=== PATIENT | female | born 1965 | race Caucasian/White ===

== ENCOUNTER 2017-11-17 07:30 | Outpatient (RCR) | payer OTHER, SELFPAY ==
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
--- NOTE | 2017-12-15 10:39 | HP.PT.NRP ---
HP - Discharge Summary (1) - Patient Information ARACELY MARIE was seen in my office for initial evaluation on 11/11/17. The following Plan of Care was established for this patient: Initial Frequency: 2x /Week Initial Duration: 3 Weeks - Anticipated Interventions Patient/Client Instruction: Educate patient on: Benefits of Fitness Program For the Purpose of:: To improve ability to perform ADL's Therapeutic Exercise to Include: Strength training, Endurance training, Coordination, Body mechanics, Postural training, Flexibilty training, Passive ROM, Active ROM, Scapular Strength/Stabilization For the Purpose of:: To improve muscle performance and motor function Manual Therapy Techniques to Include: Mobilization, Functional dry needling, Soft tissue mobilization For the Purpose of:: To improve nutrient delivery to tissue, To increase oxygenation perfusion This patient was last seen in our office . Pertinent comments regarding their Physical therapy will appear below: Patient has not attended therapy in 4 weeks and is appropriate for d/c at this time. At this point I will be discontinuing this patient from physical therapy. I would be happy to see this patient again in the future if found appropriate by the physician. Thank you! Gi Fuchs
== END 2017-11-17 19:00 | disposition home or self-care (01) ==
LOC: PT 07:30
PROVIDERS: Family Provider Internal Medicine Infectious Disease; PCP Internal Medicine Infectious Disease; Visit Provider Internal Medicine Infectious Disease
DX: M54.2 Cervicalgia (principal)
CPT/HCPCS: 97110; 97140; 97162

== ENCOUNTER → 2018-05-25 07:26 | Outpatient (CLI) | payer OTHER, SELFPAY ==
[2018-05-28 11:02] LABS: Thyroid Stim Hormone (TSH) 1.41 uIU/mL (0.358-3.74)
== END ==
PROVIDERS: Family Provider Internal Medicine Infectious Disease; PCP Internal Medicine Infectious Disease; Visit Provider Internal Medicine Infectious Disease
DX: Z00.00 Encounter for general adult medical examination without abnormal findings (principal); E78.1 Pure hyperglyceridemia; E78.00 Pure hypercholesterolemia, unspecified; Z68.26 Body mass index [BMI] 26.0-26.9, adult
CPT/HCPCS: 84443

== ENCOUNTER 2018-07-17 06:51 | Day surgery (SDC) | payer OTHER, SELFPAY ==
[2018-07-17] VITALS (9 sets, daily range): BP systolic 95–137; BP diastolic 62–88; PULSE 78–87; RESP 12–18; TEMP 36.8–37.2; O2SAT 95–100; BMI 26.4
--- NOTE | 2018-07-17 08:00 | COLBX_PTH ---
PATIENT: ARACELY MARIE LOC: EN U#:[id number] AGE/SX: 52/F ROOM: RE07/17/[address]: Dr. Mati Newman MD : 1965 BED: DIS: 07/17/2018 SPEC #: [id number] RECD: 07/17/18 10:08 STATUS: DIANA PILO #: [id number] SLADE: 07/17/18 08:[address]: Mati Newman DEPT: SURGICAL PATHOLOGY RECD BY: Graeme Clancy ENTERED: 07/17/18 11:36 SP TYPE: COLON BX OTHR DR: Dr. Chase Gamlbe MD Tissues: COLON BIOPSY Procedures: Surgery Specimen Level IV HEADER OPERATION: Colonoscopy (MOD) PRE-OP DIAGNOSIS: Screening TISSUE SUBMITTED: Random colon biopsies MICROSCOPIC DIAGNOSIS Colon, random biopsy: Fragments of colonic mucosa, no pathologic diagnosis. See comment. SJ:elroy 07/20/18 COMMENT Trichrome stain with matched control is used in the evaluation of the specimen and does not show any significant thickening of subepithelial collagen band. Correlation with clinical, endoscopy findings and appropriate followup are necessary. Case has been reviewed in consultation with Dr. Elam who concurs with the above diagnosis. IDC:AM MICROSCOPIC DESCRIPTION Slides are reviewed. GROSS DESCRIPTION Received is one container labeled with the patient name and designated random colon biopsy. The specimen consists of multiple irregular fragments of light talley soft tissue that in aggregate measure 1 x 0.5 x 0.1 cm. The specimen is totally submitted in one cassette. / SJ:sp 07/17/18 TC: 4 CPT: 95533, 99841
--- NOTE | 2018-07-17 08:19 | PCM.HP.STD ---
Problem List (1) Screening for intestinal cancer Status: Acute History of Present Illness Date of Admission: 07/17/18 The patient is a 52 year old F screening for intestinal cancer. Previous colonoscopy was 10 years ago. No bright red blood per rectum or melena. She does have lifelong chronic constipation alternating with diarrhea. No family history of colon cancer. She otherwise is enjoying stable health. Past Medical History Past Medical History (Chronic Problems): Chronic Problems (Last Reviewed 05/25/18 @ 14:42 by Jami Madden) Autonomic dysfunction (Chronic) Atrophic vaginitis (Chronic) Medical History: Medical History (Last Reviewed 05/25/18 @ 14:42 by Jami Madden) SVT (supraventricular tachycardia) (Acute) I47.1 Autonomic dysfunction (Chronic) G90.9 Endometriosis N80.9 History of hysterectomy Z90.710 Allergies No Known Allergies Allergy (Verified 07/14/18 14:20) Home Medications: Ambulatory Orders Medication Instructions Recorded Fludrocortisone Acetate [Florinef] 0.1 mg PO QHS 08/12/15 Metoprolol(XL)Succ [Toprol Xl 25 mg PO QHS 08/12/15 (Beta Tyler)] multivitamin,kb-wtrw-jsdxhire 1 tab PO QHS 10/14/17 tablet yzbbiez-nkdoablciwmws-tosqvbtp 250 1 tab PO ONCE PRN 05/25/18 mg-250 mg-65 mg tablet sennosides 8.6 mg tablet 8.6 mg PO DAILY PRN PRN 05/25/18 Melatonin 3 mg PO MOWETH 07/14/18 Surgical History: Surgical History (Last Reviewed 05/25/18 @ 14:42 by Jami Madden) History of appendectomy Z98.890, Z90.49 History of cholecystectomy Z90.49 History of tubal ligation Z98.51 Smoking Status: Never smoker Tobacco Use: Non-smoker Review of Systems Constitutional: Reports: - - Mild nausea and headache Eyes: Denies: Blurred vision Cardiovascular: Denies: Chest Pain Respiratory: Denies: Cough Gastrointestinal: Reports: Constipation, Diarrhea. Denies: Abdominal Pain Genitourinary: Denies: Dysuria Psychiatric: Denies: Anxiety Endocrine: Denies: Change in Body Habitus VTE Information - Inpt Only VTE Present on Admission: No Patient Problems: Active and Suspected Problems (Last Reviewed 05/25/18 @ 14:42 by Jami Madden) Screening for intestinal cancer (Acute) - Physical Exam General: Alert, Oriented x3, Cooperative, No apparent distress HEENT: Atraumatic Oral: Moist Mucosa Neck: Supple Lungs: Clear to auscultation Cardiovascular: Regular rate, Regular Rhythm Abdomen: Bowel Sounds Present, Soft Extremities: No clubbing Vital Signs Temp Pulse Resp BP Pulse Ox 99.0 F 87 16 121/88 H 98 07/17/18 07:09 07/17/18 07:09 07/17/18 07:09 07/17/18 07:09 07/17/18 07:09 Oxygen Delivery Method Room Air Weight: 156 lb 11.979 oz Body Mass Index (BMI) 26.4 Assessment/Plan All Active Problems (Last Reviewed 05/25/18 @ 14:42 by Jami Madden) Screening for intestinal cancer (Acute) SVT (supraventricular tachycardia) (Acute) I have recommended the patient a colonoscopy with possible biopsy or polypectomy is indicated. She is aware of the technique, benefits, risks, alternatives. She has had an opportunity to ask and have questions answered. She presents via our open access program. Mati Newman M.D., F.A.C.S.
--- NOTE | 2018-07-17 08:42 | OP.ENDO_ITS ---
Patient Name: Sena Hernandez Procedure Date: 07/17/2018 8:16 AM Date of : 1965 Age: 52 Procedure: Colonoscopy Indications: Screening for colorectal malignant neoplasm Providers: Mati Newman MD Referring MD: Mati Newman MD Medicines: Midazolam 4 mg IV, Meperidine 100 mg IV Patient Profile: Last Colonoscopy: 10 years ago. Complications: No immediate complications. Procedure: Pre-Anesthesia Assessment: - Prior to the procedure, a History and Physical was performed, and patient medications and allergies were reviewed. The patient's tolerance of previous anesthesia was also reviewed. The risks and benefits of the procedure and the sedation options and risks were discussed with the patient. All questions were answered, and informed consent was obtained. Prior Anticoagulants: The patient has taken no previous anticoagulant or antiplatelet agents. ASA Grade Assessment: II - A patient with mild systemic disease. After reviewing the risks and benefits, the patient was deemed in satisfactory condition to undergo the procedure. After I obtained informed consent, the scope was passed under direct vision. Throughout the procedure, the patient's blood pressure, pulse, and oxygen saturations were monitored continuously. The pediatric colonoscope was introduced through the anus and advanced to the cecum, identified by appendiceal orifice and ileocecal valve. The colonoscopy was performed without difficulty. The patient tolerated the procedure well. The quality of the bowel preparation was good. The ileocecal valve was photographed. Moderate Sedation: Moderate (conscious) sedation was personally administered by the endoscopist. The following parameters were monitored: oxygen saturation, heart rate, blood pressure, and response to care. Total physician intraservice time was 15 minutes. Scope In: 8:26:05 AM Scope Withdrawal Time 0 hours 7 minutes 13 seconds Scope Out: 8:37:22 AM Total Procedure Duration Time 0 hours 11 minutes 17 seconds Findings: The perianal and digital rectal examinations were normal. The colon (entire examined portion) appeared normal. Biopsies for histology were taken with a cold forceps from the entire colon for evaluation of microscopic colitis. The exam was otherwise without abnormality. Impression: - The entire examined colon is normal. Biopsied. - The examination was otherwise normal. Recommendation: - Discharge patient to home. - Resume previous diet. - Continue present medications. - Repeat colonoscopy in 10 years for screening purposes. - Telephone my office for pathology results in 1 week. Procedure Code(s): --- Professional --- 28602, Colonoscopy, flexible; with biopsy, single or multiple 21191, 59, Moderate sedation services provided by the same physician or other qualified health human services care specialist performing the diagnostic or therapeutic service that the sedation supports, requiring the presence of an independent trained observer to assist in the monitoring of the patient's level of consciousness and physiological status; initial 15 minutes of intraservice time, patient age 5 years or older Diagnosis Code(s): --- Professional --- Z12.11, Encounter for screening for malignant neoplasm of colon CPT copyright 2017 [employer]. All rights reserved. The codes documented in this report are preliminary and upon airport operations coordinator review may be revised to meet current compliance requirements. Mati Newman MD 07/17/2018 8:42:08 AM This report has been signed electronically. Number of Addenda: 0 Note Initiated On: 07/17/2018 8:16 AM
== END 2018-07-17 10:12 | disposition home or self-care (01) ==
LOC: EN 06:51 → AC 06:53
PROVIDERS: Family Provider Internal Medicine Infectious Disease; PCP Internal Medicine Infectious Disease; Referring Provider Surgery; Visit Provider Surgery
PROC: 0DJD8ZZ Inspection of Lower Intestinal Tract, Via Natural or Artificial Opening Endoscopic (ICD-10-PCS; CPT 45378; principal; 2018-07-17 07:55)
DX: Z12.11 Encounter for screening for malignant neoplasm of colon (principal); K59.00 Constipation, unspecified; N95.2 Postmenopausal atrophic vaginitis; Z90.710 Acquired absence of both cervix and uterus; Z90.49 Acquired absence of other specified parts of digestive tract; Z98.51 Tubal ligation status
CPT/HCPCS: 45380; 88305; 99152; 99153; J7120; J2405

== ENCOUNTER → 2019-01-21 13:31 | Outpatient (CLI) | payer OTHER, SELFPAY ==
[2018-08-01 13:33] VITALS: BMI 28.0
--- NOTE | 2019-01-21 13:34 | BI_ITS ---
MAMMOGRAPHY - BILATERAL SCREENING REASON FOR EXAM: Female, 53 years old. Routine annual screening examination. PERTINENT HISTORY: Aunt with breast cancer. TECHNIQUE: Digital bilateral breast marely (3D mammographic acquisition) in the CC and MLO projections. 2-D mediolateral oblique (MLO) and craniocaudad (CC) views of both breasts were obtained. CAD: Full Field Digital Mammography with Computer Added Detection was performed. COMPARISON: Comparison is made with prior study dated September 30, 2017 and December 14, 2015. FINDINGS: Breast Composition: The breasts are heterogeneously dense, which may obscure small masses. There are no dominant masses or suspicious calcifications. No other significant abnormalities are identified. There has been no significant change since the prior study. BI/SCREENING MAMM (CAD), BILAT IMPRESSION: Stable bilateral screening mammogram. Yearly follow-up mammogram recommended. (A) ASSESSMENT CATEGORY: BIRADS Category 1: Negative. A letter regarding these results will be sent to the patient by the facility within 30 days. Approximately 10% of breast cancers are not detected by mammography. A normal mammogram should not delay biopsy of a clinically suspicious abnormality. [id number] Electronically Signed: Olu Edawrds, at 14:34 EDT , Service support ,
== END ==
PROVIDERS: Family Provider Internal Medicine Infectious Disease; PCP Internal Medicine Infectious Disease; Referring Provider Internal Medicine; Visit Provider Internal Medicine
DX: Z12.31 Encounter for screening mammogram for malignant neoplasm of breast (principal)
CPT/HCPCS: 77063; 77067

== ENCOUNTER → 2019-04-22 06:55 | Outpatient (CLI) | payer OTHER, SELFPAY ==
[2019-01-21 14:15] VITALS: BMI 28.0
[2019-04-22 07:20] LABS: Absolute Lymphocyte Count 2.13 X10^3/uL (0.83-4.51); Absolute Neutrophil Count 3.6 X10^3/uL (2.0-7.7); Basophil# 0.02 X10^3/uL; Basophil% 0.3 % (0-1); Eosinophil# 0.11 X10^3/uL; Eosinophils% 1.7 % (0-5); Hematocrit 40.7 % (37-47); Hemoglobin 13.4 g/dL (12.0-15.0); Lymphocyte # 2.13 X10^3/ul (4.0); Lymphocyte % 32.9 % (19-41); Mean Corp Hgb Conc 32.9 g/dL (32-36); Mean Corpuscular Hgb 30.1 pg (27.0-32.0); Mean Corpuscular Volume 91.5 fL (81-99); Mean Platelet Vol. 9.7 fl (6.2-12.0); Monocyte# 0.62 X10^3/uL; Monocyte% 9.6 % (0-10); NRBC Flagged by Analyzer 0 % (0-5); Neutrophil # 3.57 X10^3/uL (2.7-7.7); Neutrophil % 55.2 % (47-70); Platelet Count 276 K/mm3 (150-450); RBC Distribution Width CV 12.7 % (11.6-14.6); RBC Distribution Width SD 42.4 fl (35.1-43.9); Red Blood Count 4.45 M/mm3 (4.2-5.4); White Blood Count 6.5 K/mm3 (4.4-11.0)
[2019-04-22 07:42] LABS: AST(SGOT) 14 U/L (15-37); Alanine Aminotransfer ALT/SGPT 22 U/L (13-56); Albumin, Serum 3.9 g/dL (3.2-5.0); Alkaline Phosphatase 76 U/L (45-117); Anion Gap 6 (5-15); BUN 17 mg/dL (7-18); BUN/Creat Ratio 20.4 RATIO (10-20); Calcium,Total 8.8 mg/dL (8.5-10.1); Chloride 107 mmol/L (98-107); Cholesterol 199 mg/dL (200); Creatinine, Serum 0.83 mg/dL (0.55-1.02); EST Glomerular Filtration Rate 77 mL/min (>60); Est Glom Filt Rate - Afr Amer 93 mL/min (>60); Globulin 3.9 g/dL (2.2-4.2); Glucose 99 mg/dL (74-106); High Density Lipoprotein 47 mg/dL; Potassium 3.9 mmol/L (3.5-5.1); Protein, Total 7.8 g/dL (6.4-8.2); Sodium Level 142 mmol/L (136-145); Thyroid Stim Hormone (TSH) 1.47 uIU/mL (0.358-3.74); Triglycerides 147 mg/dL; Very Low Density Lipoprotein 29 mg/dL (5-40)
== END ==
PROVIDERS: Family Provider Internal Medicine; PCP Internal Medicine; Referring Provider Internal Medicine; Visit Provider Internal Medicine
DX: Z00.00 Encounter for general adult medical examination without abnormal findings (principal)
CPT/HCPCS: 36415; 80053; 80061; 84443; 85025

== ENCOUNTER → 2019-10-30 11:54 | Outpatient (CLI) | payer OTHER, SELFPAY ==
[2019-07-07 11:31] VITALS: BMI 27.8
--- NOTE | 2019-10-30 12:29 | RAD_ITS ---
STUDY: X-RAY - CERVICAL SPINE REASON FOR EXAM: Female, 54 years old. NECK PAIN AND INTO ARMS TECHNIQUE: 5 view(s) of the cervical spine were obtained. COMPARISON: None FINDINGS: Normal anterior atlantoaxial articulation. Normal odontoid process. Normal cervical lordosis. Normal vertebral bodies and endplates. Disc space narrowing with minor anterior spondylosis and uncovertebral hypertrophy at C5-C6 results in right more than left foraminal narrowing. There is also foraminal narrowing of left C3-C4 due to facet arthropathy. The soft tissue structures are unremarkable. RAD/Cerv Spine 4 or 5 Views IMPRESSION: Degenerative changes predominantly at C5-C6. Electronically Signed: Alexi Aponte MD ([place]) at 18:36 EST , Service support ,
== END ==
PROVIDERS: PCP Internal Medicine Infectious Disease; Referring Provider Internal Medicine; Visit Provider Internal Medicine
DX: M54.2 Cervicalgia (principal)
CPT/HCPCS: 72050

== ENCOUNTER → 2019-11-12 09:42 | Outpatient (CLI) | payer OTHER, SELFPAY ==
[2019-07-07 11:31] VITALS: BMI 27.8
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
== END ==
PROVIDERS: PCP Internal Medicine; Referring Provider Internal Medicine; Visit Provider Internal Medicine
DX: R93.7 Abnormal findings on diagnostic imaging of other parts of musculoskeletal system (principal); G89.29 Other chronic pain; M54.2 Cervicalgia
CPT/HCPCS: 72141

== ENCOUNTER 2020-03-03 08:00 | Outpatient (RCR) | payer OTHER, SELFPAY ==
[2019-07-07 11:31] VITALS: BMI 27.8
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
--- NOTE | 2020-05-02 09:11 | HP.PTDCNRP_ITS ---
ARACELY MARIE was seen in my office for initial evaluation on 02/02/20. The following Plan of Care was established for this patient: Initial Frequency: 2x /Week Initial Duration: 4 Weeks Patient/Client Instruction: Educate patient on: Condition, Plan of Care For the Purpose of:: To decrease pain, To increase ROM, To improve muscle performance and motor function, To increase tolerance to activity/condition/position, To improve ability of physical actions for home/community/work/leisure, To improve health of tissue, To decrease soft tissue restriction, To increase flexibility/ROM, To improve ability to perform tasks related to life management Therapeutic Exercise to Include: Strength training, Postural training, Flexibilty training, Active ROM, Hermes Exercises For the Purpose of:: To decrease pain, To increase ROM, To improve muscle performance and motor function, To improve ability to perform ADL's, To increase tolerance to activity/condition/position, To improve ability of physical actions for home/community/work/leisure, To improve health of tissue, To decrease soft tissue restriction, To increase flexibility/ROM, To reduce risk of recurrence, To improve ability to perform tasks related to life management Manual Therapy Techniques to Include: Mobilization, Soft tissue mobilization Comment: CERVICAL For the Purpose of:: To decrease pain, To increase ROM, To improve health of tissue, To decrease soft tissue restriction, To increase flexibility/ROM TENS: Yes IF ES: Yes Cryotherapy (ice pack, ice massage): Yes Thermo therapy (hot pack): Yes Ultrasound (thermal/non thermal): Yes For the Purpose of:: To decrease pain, To increase ROM, To improve nutrient delivery to tissue, To increase oxygenation perfusion, To improve health of tissue, To decrease soft tissue restriction This patient was last seen in our office 03/03/20. Pertinent comments regarding their Physical therapy will appear below: Patient seen for PT for neck pain and shoulder pain .Seen for PT for RT C/scapular,postural ex's. Patient to RTD had MRI showed - RTC otherthan possible recommendation for arthroscopic procedure,thus is d/c. At this point I will be discontinuing this patient from physical therapy. I would be happy to see this patient again in the future if found appropriate by the physician. Thank you! Jesus Naylor, PT, Cert MDT, OCS
== END 2020-03-03 19:00 | disposition home or self-care (01) ==
LOC: PT 08:00
PROVIDERS: PCP Internal Medicine; Referring Provider Internal Medicine; Visit Provider Internal Medicine
DX: M54.2 Cervicalgia (principal); G89.29 Other chronic pain
CPT/HCPCS: 97014; 97110; 97140; 97162; G0283

== ENCOUNTER → 2020-03-09 09:36 | Outpatient (CLI) | payer OTHER, SELFPAY ==
[2019-07-07 11:31] VITALS: BMI 27.8
--- NOTE | 2020-03-09 09:40 | RAD_ITS ---
STUDY: X-RAY - RIGHT SHOULDER REASON FOR EXAM: Female, 54 years old. Right shoulder pain for several months TECHNIQUE: 4 view(s) of the shoulder. COMPARISON: None. FINDINGS: Normal glenohumeral articulation. Normal acromioclavicular joint. Normal acromion. Normal humeral head and visualized proximal humerus. The soft tissue structures are unremarkable. Normal visualized pulmonary apex. RAD/Shoulder min 2 Views IMPRESSION: Normal x-ray examination of the shoulder. Electronically Signed: Olu Edwards, at 10:55 EDT , Service support ,
== END ==
PROVIDERS: PCP Internal Medicine; Referring Provider Internal Medicine; Visit Provider Internal Medicine
DX: M25.511 Pain in right shoulder (principal)
CPT/HCPCS: 73030

== ENCOUNTER → 2020-03-25 09:09 | Outpatient (CLI) | payer OTHER, SELFPAY ==
[2020-03-21 09:12] VITALS: BMI 28.3
--- NOTE | 2020-03-25 09:10 | MRI_ITS ---
STUDY: MRI RIGHT SHOULDER REASON FOR EXAM: Female, 54 years old. RT SHOULDER INJURY -- lifting injury 7 months ago, pain anterior shoulder with painful motion TECHNIQUE: Standardized fat and water weighted pulse sequences were obtained in all 3 orthogonal planes. COMPARISON: X-ray March 09, 2020 FINDINGS: Normal supraspinatus tendon. Normal infraspinatus tendon. Normal subscapularis tendon. Normal teres minor tendon. Normal supraspinatus muscle. Normal infraspinatus muscle. Normal subscapularis muscle. Normal teres minor muscle. Normal glenohumeral articulation. There is small joint effusion. Enthesopathic cysts or erosions of the posterior lateral humeral head . Normal biceps labral complex. Normal intracapsular long biceps tendon. Normal labrum. Normal capsulo- ligamentous complex. Normal rotator interval. There is mild osteoarthritis of the acromioclavicular articulation. There is a Type I morphology (flat undersurface) acromion, with anterior downsloping orientation. There is mild edema in the subacromial-subdeltoid bursa. Normal visualized coracohumeral and coracoacromial ligaments. Normal quadrilateral space. Normal axillary space. Normal deltoid muscle. Normal trapezius muscle. MRI/Upper Ext Joint Only(Routine) IMPRESSION: No rotator cuff tear or tear of the glenoid labrum. Electronically Signed: Cong Orosco MD at 14:25 EDT , Service support ,
== END ==
PROVIDERS: PCP Internal Medicine; Referring Provider Orthopaedic Surgery; Visit Provider Orthopaedic Surgery
DX: S49.91XA Unspecified injury of right shoulder and upper arm, initial encounter (principal); M75.41 Impingement syndrome of right shoulder; M67.911 Unspecified disorder of synovium and tendon, right shoulder
CPT/HCPCS: 73221

== ENCOUNTER → 2020-05-09 10:38 | Outpatient (CLI) | payer OTHER, SELFPAY ==
[2020-05-05 13:39] VITALS: BMI 28.3
[2020-05-09 11:59] LABS: Thyroid Stim Hormone (TSH) 1.16 uIU/mL (0.358-3.74)
== END ==
PROVIDERS: PCP Internal Medicine; Referring Provider Internal Medicine; Visit Provider Internal Medicine
DX: Z00.00 Encounter for general adult medical examination without abnormal findings (principal)
CPT/HCPCS: 36415; 84443

== ENCOUNTER 2020-05-17 08:59 | Day surgery (SDC) | payer OTHER, SELFPAY ==
[2020-03-31 09:41] VITALS: BMI 28.3
[2020-05-05 13:39] VITALS: BMI 28.3
--- NOTE | 2020-05-09 10:54 | EKG12_ITS ---
Test Reason : PRE OP Blood Pressure : / mmHG Vent. Rate : 071 BPM Atrial Rate : 071 BPM P-R Int : 120 ms QRS Dur : 084 ms QT Int : 394 ms P-R-T Axes : 039 039 028 degrees QTc Int : 428 ms Normal sinus rhythm Normal ECG Confirmed by LEROY WEINSTEIN, ZAY ([id number]), food expeditor LORY GOMEZ ([id number]) on 05/11/2020 11:37:02 AM Referred By: Florence Velasquez Confirmed By:ZAY HARPER MD
[2020-05-09 11:31] LABS: Hematocrit 40.5 % (37-47); Hemoglobin 13.8 g/dL (12.0-15.0); Mean Corp Hgb Conc 34.1 g/dL (32-36); Mean Corpuscular Hgb 31.7 pg (27.0-32.0); Mean Corpuscular Volume 93.1 fL (81-99); RBC Distribution Width CV 13.2 % (11.6-14.6); Red Blood Count 4.35 M/mm3 (4.2-5.4); White Blood Count 7.3 K/mm3 (4.4-11.0)
[2020-05-09 11:32] LABS: Mean Platelet Vol. 10.1 fl (6.2-12.0); Platelet Count 284 K/mm3 (150-450); RBC Distribution Width SD 44.1 fl (35.1-43.9); Scan Indicated on CBC? Y/N NO
[2020-05-09 11:43] LABS: Anion Gap 2 (5-15); BUN 16 mg/dL (7-18); BUN/Creat Ratio 18.6 RATIO (10-20); Calcium,Total 9.5 mg/dL (8.5-10.1); Chloride 107 mmol/L (98-107); Creatinine, Serum 0.86 mg/dL (0.55-1.02); EST Glomerular Filtration Rate 73 mL/min (>60); Est Glom Filt Rate - Afr Amer 89 mL/min (>60); Glucose 92 mg/dL (74-106); Potassium 4.4 mmol/L (3.5-5.1); Sodium Level 138 mmol/L (136-145)
--- NOTE | 2020-05-17 | TESH_PTH ---
PATIENT: ARACELY MARIE LOC: [facility] [place] U#:[id number] AGE/SX: 54/F ROOM: RE05/17/[address]: Dr. Florence Velasquez DO : 1965 BED: DIS: 05/17/2020 SPEC #: [id number] RECD: 05/17/20 13:55 STATUS: DIANA PILO #: [id number] SLADE: 05/17/20 00:[address]: Florence Velasquez DEPT: SURGICAL PATHOLOGY RECD BY: Lberon Menard ENTERED: 05/17/20 13:56 SP TYPE: TENDON OTHR DR: Dr. Eugenie Saavedra MD Tissues: Tendon and tendon sheath, NOS Procedures: Surgery Specimen Level III HEADER OPERATION: Arthroscopy shoulder, subacromial decompression PRE-OP DIAGNOSIS: Subacromial bursitis of right shoulder joint; biceps tendonitis right shoulder TISSUE SUBMITTED: Right biceps tendon MICROSCOPIC DIAGNOSIS Right biceps tendon, biopsy: Reparative change. Mild chronic inflammation. AM:osmar 05/18/20 MICROSCOPIC DESCRIPTION Slides are reviewed. GROSS DESCRIPTION Received in fixative is one container labeled with the patient's name and designated right biceps tendon. The specimen consists of an elongated fragment of light talley-white tendinous tissue measuring 3.5 x 0.6 x 0.2 cm. The specimen is sectioned and totally submitted in one cassette. / AM:osmar 05/17/20 TC:3 CPT: 87469
[2020-05-17 09:24] VITALS: BP 113/76; PULSE 84; RESP 16; TEMP 36.8; O2SAT 96; BMI 30.2
[2020-05-17] MEDS: Lactated Ringers 1,000 ML 100 ML IV ×2 (09:30→12:30)
--- NOTE | 2020-05-17 09:51 | PCM.HP.BLA ---
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 ARACELY MARIE is a 54 year old F here today in order to sign surgical consent for upcoming right shoulder surgery. Patient has had no change in her symptoms from previous visit. The 30-day window had and therefore patient presents today to update her consent. Ortho Exam Right Shoulder Skin/Wound: No ecchymosis, No erythema, No swelling Testing: Positive AROM-Forward Elevation 0-180 Assessment & Plan Problems 1. Subacromial bursitis of right shoulder joint M75.51 2. Biceps tendinitis of right shoulder M75.21 Plan Patient presents the office today to update her consent form for right shoulder arthroscopy. Proposed surgery is a right shoulder arthroscopy with subacromial decompression/acromioplasty, biceps tenodesis versus tenotomy, and repair as indicated. Her MRI that was done previously did not show an acute or severe rotator cuff tear at the same time did show subacromial bursitis as well as biceps tendinitis. We did discuss the procedure in detail and discussed that duration of the surgery as well as recovery is going to depend a lot on what is actually performed. We did discuss the difference between a tenodesis and tenotomy and patient states that she would prefer to have the tenodesis if possible. We explained what this meant in terms of her recovery that this is a little longer which she is aware. Patient will be contacted by our surgery department for preanesthesia/surgery testing. She will also have a COVID-19 test 72 hours prior to the procedure. She is to quarantine of that to make sure she reduce exposure in the interim. Patient was already given antimicrobial scrub to use the night before the morning of her surgery. She should reduce her anti-inflammatory use 1 week prior to the procedure. All her questions were answered at this time. Patient can notify our office if she has any other concerns or complaints. This note was generated with [employer] dictation software. It may contain incorrect words, spelling, and punctuation that were not noted in checking the note before signing. Risk benefits and alternatives surgery discussed with patient. Risk including but not limited to blood loss, blood clot, infection, neurovascular, failure procedure, loss of life and loss of limb. Coding Level of Care Code Off vis,est,level 2 Diagnoses Subacromial bursitis of right shoulder joint M75.51 Biceps tendinitis of right shoulder M75.21 Procedure Criteria Procedure Type: Elective COVID Risk Discussion: The surgeon/proceduralist and patient have discussed in detail the risk of exposure to and/or potential harm posed by the COVID-19 virus with having a surgery/procedure at this time versus the risk of delaying the surgery/procedure. It is not possible to know either the risk of delaying the surgery or procedure or chance of getting an infection with perfect accuracy, but a joint decision was made between the patient and the surgeon/proceduralist to proceed at this time with the scheduled surgery/procedure as indicated on the consent form.
--- NOTE | 2020-05-17 10:01 | PCM.DC.ORTHO ---
Discharge Diet: No Restrictions - May get incision wet after 4 days, remove dressing apply Band-Aids at that time, call with increased pain numbness tingling or further issues arise, follow-up in 2 weeks unless, arm in sling may use wrist and hand as tolerated, may move shoulder pendulums postop as tolerated Discharge Activity: May Not Drive May shower in (days): 1 Ice area for (Minutes): 20 - Every hour while awake. Weight Bearing Status: Weight bearing as tolerated Keep extremity elevated above heart level: Operative Extremity Call your doctor if your incision/area has: Continuous Slow Oozing, Sudden Increased Bleeding, Increased Pain/ Swelling, Increased Redness, Foul Smelling Discharge Call your doctor if you observe: Fever of 101 or Higher, Coldness, Increased Pain, Numbness or Tingling, Change in Color, Calf discomfort Allergies/Adverse Reactions: Allergies No Known Allergies Allergy (Verified 05/08/20 13:13) Medications to take at Discharge zxohccw-mayrgnqqpmjdv-ecqwdzrm 250 mg-250 mg-65 mg tablet 1 tab PO ONCE PRN 05/25/18 fludrocortisone 0.1 mg tablet 0.1 mg PO QHS #90 tab 08/24/19 metoprolol succinate 25 mg tablet,extended release 24 hr 25 mg PO QHS #90 tab 08/24/19 Tizanidine HCl [Zanaflex] 4 mg PO Q8H PRN PRN #20 cap 11/02/19 Hydrocodone Bitart/Apap 5-325 [Hines 5MG-325MG] 1 - 2 tab PO Q6H PRN PRN 5 Days #40 tab 05/17/20 Mirabegron [Myrbetriq] 50 mg PO DAILY 05/17/20 Zolpidem Tartrate [Ambien (Generic)] 5 mg PO QHS PRN PRN #14 tab 05/17/20 The following prescriptions were given: Zolpidem Tartrate [Ambien (Generic)] 5 mg PO QHS PRN PRN #14 tab PRN Reason: Insomnia Transmission Status: Received by [facility] Hydrocodone Bitart/Apap 5-325 [Hines 5MG-325MG] 1 - 2 tab PO Q6H PRN PRN 5 Days #40 tab PRN Reason: Pain Transmission Status: Received by [facility] Primary Care Physician: Eugenie Saavedra MD [Primary Care Provider] - Test Results: Test results from this visit will be discussed in further detail at your follow-up appointment, if applicable. Please Follow Up With: Florence Velasquez, DO - [phone]
--- NOTE | 2020-05-17 10:01 | PCM.OPRPT ---
Report of Operation Date of Procedure: 05/17/20 Pre-Operative Diagnosis: right shoulder biceps tendinosis, subacromial impingment syndrome Post-Operative Diagnosis: same Surgery/Procedure Performed:: sars, sad/acromioplasty, open subpec biceps tenodesis harvesting supervisor: Declan Torres Type of Anesthesia:: General/Regional Anesthesiologist: Finn Mcdonnell Estimated Blood Loss (mL): min Fluids Replaced: 1200cc lr Description of Procedure: Preop note Patient is a 54-year-old female with continued right shoulder and arm pain. Patient states she had a pulling sensation to her right biceps just a few days ago but still having pain in the shoulder joint and on top of the shoulder joint. Patient failed conservative treatment options patient MRI shows no obvious pathology some bursitis and questionable tendinosis with fluid around the biceps tendon. Risk benefits and alternatives were discussed with patient. Risks including but not limited to blood loss, blood clot, infection, neurovascular, failure procedure, loss of life and loss of limb. Patient is aware like proceed with right shoulder arthroscopy repair as indicated. Operative note Patient seen and examined preop holding area. Right shoulder was marked. Patient brought to the operating room placed supine on the operating table. Signed, anesthesia, antibiotics were administered. The right arm was prepped and draped usual sterile technique. Patient was paced paced patient was placed in beachchair positioning group home through we did recheck her blood pressure which was stable throughout. All bony prominences well-padded and SCDs placed on her bilateral lower extremity. We marked out our portal placement for our bony landmarks. We insufflated the joint from the posterior aspect and had good return. Timeout was performed. We then created a posterior portal with 11 blade. Begin our diagnostic arthroscopy. Patient was quite erythematous anteriorly. There is no obvious lesions of her glenohumeral joint. No bony debris or loose bodies in the inferior recess her subscap was intact. We then created anterior portal under direct visualization. We then probed the biceps tendon brought the biceps tendon into the shoulder it was quite erythematous and throughout positive kissing lesion the insertion onto the labrum was intact over the biceps tendon itself was quite erythematous. We then truncated the biceps at its insertion. We then used a shaver in the anterior aspect in order debride back the biceps labral junction to a stable rim. We visualized the rotator cuff which is intact. We then moved to the subacromial space. Created a lateral portal under direct visualization. Patient had extensive bursitis throughout. This was resected with a combination of a shaver and a bur. She also had a uneven acromion which was gently debrided with a as well to a stable co-plane. We then irrigated the shoulder with copious muscle sterile saline. Moved her open tenodesis. Areas reprepped we waited the allotted 3 minutes meter incision just distal to her tattoo is about 2 and half centimeters in length. Used a 15 blade cut through skin dissected down with Metzenbaums to the level of the fascia the biceps was then brought out of the incision we truncated the and sent it to pathology for further evaluation we backslash the end of the biceps tendon. We then placed the pec button at the end of the whipstitch in standard technique. We then demarcated sub-pec for our placement of our pec button Arthrex. We used the Bovie to to clear of soft tissue we then drilled unicortical he placed the button through into the bony canal and then flipped the button and then oversewed the tendon to the periosteum. Please note that she had a partial tendon of the myotendinous junction tear which was visualized but the rest of the muscle was intact and her short head was intact. We then irrigated the incision with copious muscle sterile saline the incision was closed with 2-0 Vicryl and running 4 Monocryl portals were closed with interrupted 4-0 nylon stitches. Sterile dressings were applied and a sling was applied. Patient taught procedure well no complications transferred recovery room stable condition. Postoperative note Nonweightbearing right upper extremity May use shoulder as tolerated Do not flex right upper extremity elbow Pharmacy has prescriptions Call with increased pain numbness tingling or further issues arise This note was generated with [employer] dictation software. It may contain incorrect words, spelling, and punctuation that were not noted in checking the note before signing.
[2020-05-17] MEDS: Cefazolin 2 GM in 0.9% Normal Saline 100 ML IV (10:27)
[2020-05-17] MEDS: Epinephrine (1 mg/ml) 1 MG/ML VIAL (10:57)
[2020-05-17] MEDS: Mupirocin Ointment 22gm Tube 1 APPLIC (11:39)
[2020-05-17 12:14] VITALS: BP 113/70; BP 113/76; PULSE 92; RESP 16; TEMP 35.6; O2SAT 92
[2020-05-17 12:30] VITALS: BP 113/76; BP 115/73; PULSE 79; RESP 16; O2SAT 94
[2020-05-17 12:44] VITALS: BP 113/76; BP 113/77; PULSE 79; RESP 16; O2SAT 94
[2020-05-17 12:50] VITALS: BP 107/83; BP 113/76; PULSE 80; RESP 16; TEMP 35.6; O2SAT 94
[2020-05-17 13:53] VITALS: BP 113/75; BP 113/76; PULSE 80; RESP 16; TEMP 35.6; O2SAT 98
== END 2020-05-17 14:08 | disposition home or self-care (01) ==
LOC: SDC 08:59 → AC 09:00
PROVIDERS: Anesthesiology; PCP Internal Medicine; Referring Provider Orthopaedic Surgery; Visit Provider Orthopaedic Surgery
PROC: (CPT 29827; principal; 2020-05-17 10:50)
DX: M75.51 Bursitis of right shoulder (principal); M75.21 Bicipital tendinitis, right shoulder
CPT/HCPCS: 01630; 29826; 29828; 36415; 80048; 85027; 87635; 88304; 93005; C9803; J7120; J2405; U0003

== ENCOUNTER 2020-09-20 09:17 | Day surgery (SDC) | payer OTHER, SELFPAY ==
[2020-07-20 11:57] VITALS: BMI 29.4
--- NOTE | 2020-09-20 05:00 | HP_ITS ---
I have re-examined the patient. There are no clinical changes since date of exam. Intake Intake Visit Reasons: RIGHT SHOULDER Chief Complaint: right shoulder Accompanied by: self Is patient in pain?: Yes Allergies acetaminophen [From [place]] Adverse Reaction (Verified 07/20/20 11:58) insomnia hydrocodone [From [place]] Adverse Reaction (Verified 07/20/20 11:58) insomnia Medications xzcdwva-dmjhhykwopozg-hrmmbhin 250 mg-250 mg-65 mg tablet 1 tab PO ONCE PRN 05/25/18 [History Confirmed 09/12/20] Mirabegron [Myrbetriq] 50 mg PO DAILY 05/17/20 [History Confirmed 09/12/20] meloxicam 15 mg tablet 15 mg PO DAILY #30 tab 07/21/20 [Rx Confirmed 09/12/20] fludrocortisone 0.1 mg tablet 0.1 mg PO QHS #90 tab 09/11/20 [Rx Confirmed 09/12/20] metoprolol succinate 25 mg tablet,extended release 24 hr 25 mg PO QHS #90 tab 09/11/20 [Rx Confirmed 09/12/20] [facility] Medical History SVT (supraventricular tachycardia) (Acute) Autonomic dysfunction (Chronic) Back pain (Acute) Endometriosis (Acute) Surgical History History of appendectomy (Acute) History of surgery on upper extremity (Acute) History of cholecystectomy (Resolved) History of hysterectomy (Resolved) History of tubal ligation (Resolved) Family History Mother Cancer lung- smoker COPD (chronic obstructive pulmonary disease) Father Cancer hodgkins lymphoma Grandmother Diabetes Aunt Cancer bladder Social History (Updated 09/12/20 @ 11:[address] 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 Florence Velasquez, DO 09/12/20 0954. ARACELY MARIE is a 54 year old F here today for F/U on right frozen shoulder after 05/2020 sars, sad/acromioplasty, open subpec biceps tenodesis. SHe had a steroid injection 05/2020 which she states was semi-effective. She is still having issues with her frozen shoulder and she does have pain when she pushes the shoulder past her frozen point. She has about 100 forward elevation and abduction but she has decreased internal and external rotation still although abduction has improved. ROS Musc Reports system reviewed and no additional complaints, except as docu, Reports joint pain, Denies joint swelling, Denies numbness, Denies stiffness, Denies tingling Skin/Breast Reports system reviewed and no additional complaints, except as docu, Denies dry skin, Denies redness, Denies lesions, Denies new lesions, Denies non-healing lesions, Denies itching, Denies rash, Denies skin ulcer, Denies sores, Denies wounds Neuro Yes system reviewed and no additional complaints, except as docu, No numbness, No tingling Ortho Exam General General: Yes no acute distress Neurologic: Yes alert, Yes oriented x3 Psychologic: Yes reasonable and appropriate Right Shoulder Date of Surgery: 05/17/20 Skin/Wound: No ecchymosis, No erythema, No swelling Testing: Positive Hawkin's and Neer's Internal Rotation: Buttock SHOULDER: stiff rom of shoulder in all planes, musc/ax/rad/uln nerves intact Assessment & Plan Problems 1. Adhesive capsulitis of right shoulder M75.01 Plan Patient educated that since she continues to have a frozen should after a steroid injection and about 12 weeks of PT which has not been helpful. Since she is continuing to have stiffness then it is recommended that she has a right shoulder manipulation under anesthesia. Reviewed the pre-operative plans with the patient. Risks and benefits of the procedure were fully explained, including but not limited to infection, neurovascular injury, continued pain, arthritis, stiffness, need for further surgery, re-injury, DVT, PE, general risks of anesthesia, and loss of limb or life. The patient understands all the risks and does wish to proceed with written consent. Educated that the biggest risk of the procedure is fracturing the arm and/or tearing her rotator cuff, etc.. We will get patient into PT the day after surgery. We discussed the current risk associated COVID-19. While it is understood that there is a community spread of COVID 19 the risk of kirti COVID-19 while at [facility] is very low, however, the risk cannot be completely mitigated because of the community spread of the disease. We discussed in detail the risk of exposure to and or potential harm posed by the COVID-19 virus with having a surgery/procedure at this time versus the risk of delaying the surgery/procedure. Is not possible to know either the risk of delaying the surgery procedure or chance of getting an infection with perfect accuracy, but a joint decision was made to proceed at this time with a schedule surgery/procedure as indicated on the consent form. Patient was notified that we will need to comply with any screening or testing [facility] wishes to perform or that surgery may be delayed for any positive results. Follow up 2 weeks post op or sooner if pain, swelling, numbness or associated symptoms, or concerns develop. All questions answered. Patient in agreement of plan. Coding Level of Care Code Off vis,est,level 4 Diagnoses Adhesive capsulitis of right shoulder M75.01 ??Laterality: right COVID (Procedure Consent) Procedure Criteria Procedure Criteria: Yes Elective The surgeon/proceduralist and patient have discussed in detail the risk of exposure to and/or potential harm posed by the COVID-19 virus with having a surgery/procedure at this time versus the risk of? delaying the surgery/procedure. It is not possible to know either the risk of delaying the surgery or procedure or chance of getting an infection with perfect accuracy, but a joint decision was made between the patient and the surgeon/proceduralist ?to proceed at this time with the scheduled surgery/procedure as indicated on the consent form.
[2020-09-20 09:54] VITALS: BP 112/79; PULSE 70; RESP 16; TEMP 36.7; O2SAT 97; BMI 29.2
[2020-09-20] MEDS: Lactated Ringers 1,000 ML 100 ML IV (10:02)
--- NOTE | 2020-09-20 10:11 | OP.PCM_ITS ---
Report of Operation Date of Procedure: 09/20/20 Pre-Operative Diagnosis: right shoulder adhesive capsulitis Post-Operative Diagnosis: same Surgery/Procedure Performed:: right shoulder manipulation under anesthesia Type of Anesthesia:: MAC/Supplemental/Local - regional interscalene Anesthesiologist: Satya Marin Fluids Replaced: 500cc lr Description of Procedure: Preop note Patient is a 54-year-old female who had a subacromial decompression and biceps tenodesis over 6 months ago failed conservative treatment after developing adhesive capsulitis which include steroid injections intra-articularly as well as subacromially as well as increased physical therapy and pain management. Patient elected proceed with a manipulation under anesthesia. We did discuss if this fails she might need a shoulder arthroscopy for further manipulation however she is improved she does not where she wants to be she has decreased external/internal as well as abduction flexion and we will address that today. Risk benefits alternatives were discussed the patient. Risk include but not limited to blood loss, blood clot, infection, neurovascular, failure procedure, fracture of the bone, dislocation of the shoulder, loss of life and loss of limb. Patient is aware like proceed with right shoulder manipulation under anesthesia. Operative note Patient seen and examined preoperative holding area. Right shoulder was marked. Patient received a preop regional block. Patient brought to the operating placed supine on the operating table. Signed and anesthesia was administered. We then preop evaluated her range of motion in flexion she was 140 abduction she was 100 external rotation 10 and she was hip to internal rotation with we then in sequence we did forward flexion we then added external rotation at the side external/internal rotation at 9 degrees and then internal rotation to her buttock. Patient had equal external and internal rotation 90 degrees compared t o contralateral side as well as full range of motion flexion as well as full range of motion in abduction these were all taken we also take Intra-Op pictures to confirm and show patient as well. Patient taught procedure well no complication transferred recovery room in stable condition. Postop note Patient has physical therapy to start tomorrow. Patient was stable postop prescription for a Medrol Dosepak as well as pain rx- percocet Discussed with This note was generated with [employer] software. It may contain incorrect words, spelling, and punctuation that were not noted in checking the note before signing.
--- NOTE | 2020-09-20 10:11 | PCM.DC.ORTHO ---
Discharge Diet: No Restrictions Discharge Activity: May Not Drive May shower in (days): 1 Ice area for (Minutes): 20 - Every hour while awake. Weight Bearing Status: Weight bearing as tolerated Keep extremity elevated above heart level: Operative Extremity Call your doctor if your incision/area has: Continuous Slow Oozing, Sudden Increased Bleeding, Increased Pain/ Swelling, Increased Redness, Foul Smelling Discharge Call your doctor if you observe: Fever of 101 or Higher, Coldness, Increased Pain, Numbness or Tingling, Change in Color, Calf discomfort Allergies/Adverse Reactions: Allergies acetaminophen [From [place]] Adverse Reaction (Verified 09/14/20 14:17) insomnia hydrocodone [From [place]] Adverse Reaction (Verified 09/14/20 14:17) insomnia Medications to take at Discharge ckdqbzb-crqixtezkpacs-rbsmpccv 250 mg-250 mg-65 mg tablet 1 tab PO ONCE PRN 05/25/18 Mirabegron [Myrbetriq] 50 mg PO DAILY 05/17/20 fludrocortisone 0.1 mg tablet 0.1 mg PO QHS #90 tab 09/11/20 metoprolol succinate 25 mg tablet,extended release 24 hr 25 mg PO QHS #90 tab 09/11/20 traMADol [Ultram (G)] 50 mg PO Q6H PRN PRN 09/14/20 Primary Care Physician: Eugenie Saavedra MD [Primary Care Provider] - Test Results: Test results from this visit will be discussed in further detail at your follow-up appointment, if applicable. Please Follow Up With: Florence Velasquez, DO - [phone]
[2020-09-20 11:13] VITALS: BP 104/67; BP 112/79; PULSE 85; RESP 18; TEMP 36.1; O2SAT 95
[2020-09-20 11:15] VITALS: BP 104/65; BP 112/79; PULSE 99; RESP 16; O2SAT 96
[2020-09-20 11:30] VITALS: BP 106/70; BP 112/79; PULSE 80; RESP 16; O2SAT 96
[2020-09-20 11:35] VITALS: BP 112/79; BP 116/69; PULSE 78; RESP 16; TEMP 36; O2SAT 99
[2020-09-20 12:51] VITALS: BP 112/79; BP 97/67; PULSE 88; RESP 16; TEMP 36.7; O2SAT 99
== END 2020-09-20 13:00 | disposition home or self-care (01) ==
LOC: SDC 09:18 → AC 09:19
PROVIDERS: PCP Internal Medicine; Referring Provider Orthopaedic Surgery; Visit Provider Orthopaedic Surgery
PROC: (CPT 23700; principal; 2020-09-20 11:00)
DX: M75.01 Adhesive capsulitis of right shoulder (principal); Z79.1 Long term (current) use of non-steroidal anti-inflammatories (NSAID); Z88.5 Allergy status to narcotic agent
CPT/HCPCS: 23700; 87426; C9803; J7120; J2405

== ENCOUNTER 2020-10-11 16:03 | Emergency (ER) | payer OTHER, SELFPAY ==
[2020-10-11 16:05] VITALS: BP 120/87; PULSE 190; RESP 20; TEMP 36.1; O2SAT 97; BMI 29.2
--- NOTE | 2020-10-11 16:19 | EKG12_ITS ---
Test Reason : REPEAT Blood Pressure : / mmHG Vent. Rate : 114 BPM Atrial Rate : 114 BPM P-R Int : 132 ms QRS Dur : 082 ms QT Int : 328 ms P-R-T Axes : 035 040 050 degrees QTc Int : 452 ms Sinus tachycardia Otherwise normal ECG Confirmed by LEROY WEINSTEIN, ZAY ([id number]), business editor KIMBERLY GONZALES ([id number]) on 10/13/2020 11:07:25 AM Referred By: IMELDA Confirmed By:ZAY HARPER MD
--- NOTE | 2020-10-11 16:19 | RAD_ITS ---
STUDY: X-RAY CHEST REASON FOR EXAM: Female, 54 years old. Shortness of breath, tachycardia. TECHNIQUE: Single AP portable view of the chest. COMPARISON: None. FINDINGS: The lungs are clear and expanded. There is no demonstrated pleural abnormality. Normal size heart. Normal mediastinum and bernice. Normal visualized pulmonary arteries. Normal visualized aortic arch and descending thoracic aorta. Normal visualized thoracic spine. Normal visualized ribs, clavicles, and shoulders. There is no demonstrated abnormality of the visualized soft tissue structures of the upper abdomen. RAD/Chest 1 View (Portable) IMPRESSION: Normal x-ray examination of the chest. Electronically Signed: Graeme Mullins MD at 16:49 EST Tel , Service support ,
[2020-10-11] MEDS: 0.9% Normal Saline 1,000 ML 1000 ML IV (16:23)
--- NOTE | 2020-10-11 16:33 | ED.DCSUM_ITS ---
- ER Visit Summary Date of Service: 10/11/20 Chief Complaint: Palpitations History of Present Illness: The patient is a 54 F who presents with palpitations that began approximate 1 hour prior to arrival. Patient states they have been constant. Patient states she was putting away groceries when the symptoms began. Patient states she feels some discomfort in the lower substernal area. Patient states nothing makes it better or worse. Patient does admit to some slight shortness of breath with this. Patient denies any nausea or vomiting. Patient denies any diaphoresis. Patient denies any cough or fevers. Patient denies any lightheadedness or dizziness. Physical Examination: Vital signs are stable except for a tachycardia of 190. Patient is afebrile. Patient is in no acute distress. Oral mucosa is pink and moist. Neck is supple. Trachea is midline. There is no JVD. Heart was regular and tachycardic. Lungs are clear and equal bilaterally. Abdomen is soft. Bowel sounds are normal. There is no tenderness. Cranial nerves II through XII are intact. There are no focal motor or sensory deficits. Test Results: EKG was obtained. On my interpretation, there is supraventricular tachycardia with a rate of 169. There are nonspecific ST-T wave changes in the inferior and precordial leads. This is likely related to the rate. While I was examining the patient, the patient converted to a normal sinus rhythm with a rate of 115. Patient states she had no change in symptoms. Repeat EKG was obtained. On my interpretation, there is a normal sinus rhythm with a rate of 114. There are no acute ST or T wave changes. CBC, comprehensive metabolic profile, and troponin were obtained. There is a mild leukocytosis of 12.4. The remaining labs were essentially within normal limits. Portable 1 view chest x- ray was obtained. On my interpretation, lung saldivar are clear. There is normal cardiac silhouette. Bony thorax is normal. There is no acute process noted. Radiologist also interpreted the x-ray and agrees. Emergency Department Course and Treatment: Patient was given IV fluids. Patient felt better on reevaluation. Patient was advised of her findings. Patient was instructed to follow-up with her primary care physician and mortgage loan assistant in 5 to 7 days. Patient understood and was agreeable with the plan. All questions were answered. Disposition: Discharge home Impression: 1. Supraventricular tachycardia, resolved This note was generated with [employer] dictation software. It may contain incorrect words, spelling, and punctuation that were not noted in review of the chart prior to signing ED Disposition - Plan for ED Patient: Disposition: Home or Assisted Living Diagnosis: Supraventricular tachycardia Instructions: ED Tachycardia: PAT Referrals: Eugenie Saavedra MD [Primary Care Provider] - 5-7 Days
[2020-10-11 16:35] LABS: Absolute Neutrophil Count 9.6 X10^3/uL (2.0-7.7); Basophil# 0.03 X10^3/uL; Basophil% 0.2 % (0-1); Eosinophil# 0.02 X10^3/uL; Eosinophils% 0.2 % (0-5); Hematocrit 43.2 % (37-47); Hemoglobin 14.7 g/dL (12.0-15.0); Lymphocyte % 16.1 % (19-41); Mean Corpuscular Hgb 31.2 pg (27.0-32.0); Mean Corpuscular Volume 91.7 fL (81-99); Mean Platelet Vol. 9.6 fl (6.2-12.0); Monocyte# 0.74 X10^3/uL; NRBC Flagged by Analyzer 0 % (0-5); Neutrophil # 9.55 X10^3/uL (2.7-7.7); Neutrophil % 77.1 % (47-70); Platelet Count 362 K/mm3 (150-450); RBC Distribution Width CV 13.2 % (11.6-14.6); RBC Distribution Width SD 44.7 fl (35.1-43.9); Red Blood Count 4.71 M/mm3 (4.2-5.4); White Blood Count 12.4 K/mm3 (4.4-11.0)
--- NOTE | 2020-10-11 16:40 | EKG12_ITS ---
Test Reason : Blood Pressure : / mmHG Vent. Rate : 169 BPM Atrial Rate : 056 BPM P-R Int : 000 ms QRS Dur : 078 ms QT Int : 260 ms P-R-T Axes : 000 039 054 degrees QTc Int : 435 ms Supraventricular tachycardia Nonspecific ST abnormality Abnormal ECG Confirmed by LEROY WEINSTEIN, ZAY ([id number]), staff editor KIMBERLY GONZALES ([id number]) on 10/13/2020 11:07:05 AM Referred By: Confirmed By:ZAY HARPER MD
[2020-10-11 16:46] LABS: ALB/GLOB Ratio 1.1 RATIO (0.9-2.4); AST(SGOT) 15 U/L (15-37); Alanine Aminotransfer ALT/SGPT 33 U/L (13-56); Albumin, Serum 4.2 g/dL (3.2-5.0); Alkaline Phosphatase 107 U/L (45-117); Anion Gap 8 (5-15); BUN 20 mg/dL (7-18); BUN/Creat Ratio 22.5 RATIO (10-20); Calcium,Total 8.9 mg/dL (8.5-10.1); Chloride 107 mmol/L (98-107); Creatinine, Serum 0.89 mg/dL (0.55-1.02); EST Glomerular Filtration Rate 71 mL/min (>60); Est Glom Filt Rate - Afr Amer 86 mL/min (>60); Estimated Creatinine Clearance 63.85 ml/min; Globulin 3.7 g/dL (2.2-4.2); Glucose 156 mg/dL (74-106); Potassium 3.5 mmol/L (3.5-5.1); Protein, Total 7.9 g/dL (6.4-8.2); Sodium Level 137 mmol/L (136-145)
[2020-10-11 17:49] VITALS: BP 102/82; PULSE 101; RESP 18; O2SAT 98
== END 2020-10-11 17:55 | disposition home or self-care (01) ==
PROVIDERS: Emergency Provider Emergency Medicine; PCP Internal Medicine
DX: I47.1 Supraventricular tachycardia (principal)
CPT/HCPCS: 71045; 80053; 84484; 85025; 93005; 99283; J7030; A4216; J0153

== ENCOUNTER 2020-10-31 12:00 | Outpatient (RCR) | payer OTHER, SELFPAY ==
[2020-05-31 15:13] VITALS: BMI 30.2
--- NOTE | 2020-06-08 12:22 | HP.PTEVAL_ITS ---
Patient's Visit Information ARACELY MARIE is a 54 year old F referred to Physical Therapy by JESÚS Cochran with a diagnosis of R shoulder scope 05/17 SAD and biceps tenodesis. Date of Evaluation: 06/08/20 Physical Therapist: Finn Hernadez, DPT, OCS, CSCS - Visit Plan Frequency: 3x /Week Duration: 2 Months Plan: 3x/week for 6-8 weeks total for. PROM R elbow flexion, AROM R elbow ext adn shoulder. mobs to R shoulder and PROM as it is very stiff. eventual strength, may start shoulder immediately and hold on biceps contractions for now. ice 20 minutes and STM if sore. - Subjective Was lifting couch last August. R shoulder pain at the time and worsened. Had multiple treatment prior to surgery and then had on 05/17/20 and biceps tenodesis and SAD. Since then shoulder has been sore and stiff, biceps not bad. Was not using shoulder a lot prior. Been in sling most of time, off sitting and with pendulum ex. Icing daily. Pain is to achy 2-12/16 constant. Keeps her up at night as she sleeps in recliner with sling, and getting 5 hours out of normal 6. 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 Basic ADLs are getting done but slow and L handed, she is right handed so this is challenging. Hobbies: ride bikes whcih she cannot do and enjoys flower beds. - Pain R shoulder Pain Intensity (Out of 10): 4 Pain Intensity Range: 2, 4 Comment: 02/15 prior to surgery - Objective R elbow to 75 flexion vs 35 L 5 R elbow ext vs 0 L. R shoulder to 80 flexion, vs 160 L AROM. ext rotation 5 R and 60 L. IR to GT R only and L to l1. Scapula moving well B. Posture is forward head adn scapula. reflexes L bi and tri and R tri 2/3. Sensation UE WNL to gross light touch. Sterngth R biceps not tested, triceps 3+, L 4. Shoulder R 3+ IR, ER vs 4 on L. flexion and abduction 3 R and 4 L. Wrist and hand moving well B. Dons and doffs sling on her own I. PROM R shoulder firm endfeel to 25 ext rotation, 85 felxion adn 80 abduction. Painful at a end ranges. - Goals Goal 1:: Full AROM R shoulder and elbow ext without pain Goal Time Frame: 4-6 Weeks Goal 2:: Sleep through night without waking due to shoulder Goal Time Frame: 4-6 Weeks Goal 3:: I approp HEP for ROM and strength R shoulder and elbow Goal Time Frame: 6-8 Weeks Goal 4:: Pt score <20 on quick dash to show improved function Goal Time Frame: 6-8 Weeks Goal 5:: Plan to return to work Goal Time Frame: 6-8 Weeks Goal 6:: Dress normall with r UE Goal Time Frame: 4-6 Weeks - Rehabilitation Potential Physical Therapy Diagnosis: R shoulder pain and immobility after recent surgery. Rehabilitation Potential: Fair - Anticipated Interventions Patient/Client Instruction: Educate patient on: Condition, Plan of Care For the Purpose of:: To decrease pain, To increase ROM, To improve muscle performance and motor function, To increase tolerance to activi ty/condition/position, To improve ability of physical actions for home/community/work/leisure Therapeutic Exercise to Include: Strength training, Postural training, Flexibilty training, Passive ROM, Active ROM, Scapular Strength/Stabilization For the Purpose of:: To decrease pain, To increase ROM, To improve muscle performance and motor function, To increase tolerance to activity/condition/position, To improve ability of physical actions for home/community/work/leisure Manual Therapy Techniques to Include: Mobilization, Soft tissue mobilization For the Purpose of:: To decrease pain, To increase ROM Cryotherapy (ice pack, ice massage): Yes For the Purpose of:: To decrease swelling/inflammation Thank you for the opportunity to evaluate your patient. For Medicare and Medicare HMO plans, please review the plan of care and approve it. It will need to be FAXED BACK to us at [phone] for Medicare purposes. For Medicare only, by signing this I certify the plan of care. Please let me know if there are questions or concerns regarding this plan of care. Physician Signature: Date:
--- NOTE | 2020-07-04 15:22 | HP.PTREVAL_ITS ---
JESÚS Cochran, It has been my pleasure to treat ARACELY MARIE over the last 10 visits for R shoulder scope 05/17 SAD and biceps tenodesis. Please see the progress note below for an update on the physical therapy plan of care! Subjective: Healed well but gave some steroids for frozen shoulder, will go back on 06/19 for possible injections. Wants therapy to. Still doing stick lying down, wall flexion and isometrics, counter flexion/abd and bought bib. 2x/day on all exercises Sore when done. Sleep is not bad. Still schedule off work until 07/27. Objective/Function: 90 abductionand flexion AROM R shoulder today with scap compensation. 22 ext rotation actively, 28 PROM. PROM flexion to 125 with pain. IR slow and painful and about 35 degrees in sidelying. Pt has very hard time relaxing and inhibiting sretched muscles. Plan Plan: 3x/week for 3 weeks, please... 1. inhibit lats and internal rotators, stretch into flexion and externa rotators with PROM, g-h joint mobs grade 4 and PROM, encourage chest adn lat stretching. Progress strengthening of elevators as ROM improves. Goals Goal 1:: Full AROM R shoulder and elbow ext without pain Goal Time Frame: 4-6 Weeks Goal Progress: frozen, approp Goal 2:: Sleep through night without waking due to shoulder Goal Time Frame: 4-6 Weeks Goal Progress: Progressing Goal 3:: I approp HEP for ROM and strength R shoulder and elbow Goal Time Frame: 6-8 Weeks Goal Progress: Progressing Goal 4:: Pt score <20 on quick dash to show improved function Goal Time Frame: 6-8 Weeks Goal Progress: SLOW Goal 5:: Plan to return to work Goal Time Frame: 6-8 Weeks Goal 6:: Dress normall with r UE Goal Time Frame: 4-6 Weeks Goal Progress: needs rom, approp Anticipated Interventions Patient/Client Instruction: Educate patient on: Condition, Plan of Care For the Purpose of:: To decrease pain, To increase ROM, To improve muscle performance and motor function, To increase tolerance to activity/condition/position, To improve ability of physical actions for home/community/work/leisure Therapeutic Exercise to Include: Strength training, Postural training, Flexibilty training, Passive ROM, Active ROM, Scapular Strength/Stabilization For the Purpose of:: To decrease pain, To increase ROM, To improve muscle performance and motor function, To increase tolerance to activity/condition/posi tion, To improve ability of physical actions for home/community/work/leisure Manual Therapy Techniques to Include: Mobilization, Soft tissue mobilization For the Purpose of:: To decrease pain, To increase ROM Cryotherapy (ice pack, ice massage): Yes For the Purpose of:: To decrease swelling/inflammation Please do not hesitate to contact me at [phone] by phone or if you have questions or concerns regarding this new plan of care! Sincerely, Finn Hernadez, DPT, OCS, CSCS
--- NOTE | 2020-07-26 11:52 | HP.PTREVAL ---
JESÚS Cochran, It has been my pleasure to treat ARACELY MARIE over the last 19 visits for R shoulder scope 05/17 SAD and biceps tenodesis. Please see the progress note below for an update on the physical therapy plan of care! Subjective: Has oral and injected steroids in doctor last week. Feels a little looser but not a lot better. Doc said it would take a few weeks but will f/u 1/5 adn in for manipulation if not better. Wants to continue therapy and doc OK. Back to work 2days per week next week. Nervous with lifting but does not need to lift OH. Home activitiy is OK except reaching up. Modify dressing techniques. Reaching into cupboard is still issue. 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 HEP: bib, supine stick, starr pose, sleeper stretch, Wall stretches, isometric strengthening. Pain is with stretching OH 11/15. Objective/Function: AROM flexion 100, abd 110, er 20, IR to PSIS. PROM 110 flexion, 118 abd, 24 ex rotation and 45 IR in sidelying. Improving but slow and still dysfunctional ROM. Strength is 4/5 without pain. Tightness obviosu with firm endfeel to all PROM and painful. Plan Plan: continue 3x/week for 3-5 weeks for... grade 4 shoulder mobs a directions and scap mobs. PROM aggressive adn progress aggressive HEP for ROM. May give HEP of strength when 130+ AROM elevation. May use MH and ice as needed adn ES if needed for pain. 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 Goal 6:: Dress normall with r UE Goal Time Frame: 4-6 Weeks Goal Progress: Progressing, approp Anticipated Interventions Patient/Client Instruction: Educate patient on: Condition, Plan of Care For the Purpose of:: To decrease pain, To increase ROM, To improve muscle performance and motor function, To increase tolerance to activity/condition/position, To improve ability of physical actions for home/community/work/leisure Therapeutic Exercise to Include: Strength training, Postural training, Flexibilty training, Passive ROM, Active ROM, Scapular Strength/Stabilization For the Purpose of:: To decrease pain, To increase ROM, To improve muscle performance and motor function, To increase tolerance to activity/condition/position, To improve ability of physical actions for home/community/work/leisure Manual Therapy Techniques to Include: Mobilization, Soft tissue mobilization For the Purpose of:: To decrease pain, To increase ROM Cryotherapy (ice pack, ice massage): Yes For the Purpose of:: To decrease swelling/inflammation Please do not hesitate to contact me at [phone] by phone or if you have questions or concerns regarding this new plan of care! Sincerely, Finn Hernadez, DPT, OCS, CSCS
--- NOTE | 2020-08-25 09:30 | HP.PTREVAL_ITS ---
JESÚS Cochran, It has been my pleasure to treat ARACELY MARIE over the last 26 visits for R shoulder scope 05/17 SAD and biceps tenodesis. Please see the progress note below for an update on the physical therapy plan of care! Subjective: Feels a little better. Still stiff but feeling better. No pain at rest. Doesn't hurt a whole lot moving it anymore. activities OH can still be tough. 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 Reaching OH at work is minimal but can be limited. Heavy lifting uses L. To Doctor on 09/12/19. Ready foro manipulation if needed as she is tired of dealing with this. Wants to continue to try adn avoid manipulation Objective/Function: AROM flexion R shoulder 12 PROM 133. abduction 120 Active adn 130 passivwe. Ext rotation 32 degrees active and 38 passive. IR to PSIS. Improving ext rotation adn flexiona dn abduction, still shy of fully functional, IR is stagnant and still tight and hard to reach behind her. Plan Plan: 2-3x/week for 2-3 weeks to cotninue manual and PROM focus on improving ROM to avoid manipulation if possible. Grade 4 mobs and PROM .streching to R shoulder. Goals approp and to avoid manipulation if possible, questionable prognosis at this point. 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 Goal Time Frame: 4-6 Weeks Goal Progress: Progressing, approp Goal 2:: Sleep through night without waking due to shoulder Goal Time Frame: 4-6 Weeks Goal Progress: Goal Met Goal 3:: I approp HEP for ROM and strength R shoulder and elbow Goal Time Frame: 6-8 Weeks Goal Progress: Progressing Goal 4:: Pt score <20 on quick dash to show improved function Goal Time Frame: 6-8 Weeks Goal Progress: Goal Met Goal 5:: Plan to return to work Goal Time Frame: 6-8 Weeks Goal Progress: Goal Met Goal 6:: Dress normall with r UE Goal Time Frame: 4-6 Weeks Goal Progress: Goal Met Anticipated Interventions Patient/Client Instruction: Educate patient on: Condition, Plan of Care For the Purpose of:: To decrease pain, To increase ROM, To improve muscle performance and motor function, To increase tolerance to activity/condition/position, To improve ability of physical actions for home/community/work/leisure Therapeutic Exercise to Include: Strength training, Postural training, Flexibilty training, Passive ROM, Active ROM, Scapular Strength/Stabilization For the Purpose of:: To decrease pain, To increase ROM, To improve muscle performance and motor function, To increase tolerance to activity/cond ition/position, To improve ability of physical actions for home/community/work/leisure Manual Therapy Techniques to Include: Mobilization, Soft tissue mobilization For the Purpose of:: To decrease pain, To increase ROM Cryotherapy (ice pack, ice massage): Yes For the Purpose of:: To decrease swelling/inflammation Please do not hesitate to contact me at [phone] by phone or if you have questions or concerns regarding this new plan of care! Sincerely, Finn Hernadez, DPT, OCS, CSCS
--- NOTE | 2020-09-11 14:17 | HP.PTREVAL_ITS ---
JESÚS Cochran, It has been my pleasure to treat ARACELY MARIE over the last 29 visits for R shoulder scope 05/17 SAD and biceps tenodesis. Please see the progress note below for an update on the physical therapy plan of care! Subjective: Not bad. Doesn't feel like ROM improving alot. Still hard to reach to top shelves and hard to pull hair up. Cleaning shower can be difficult. Feels tired adn weak Comfortable at rest and with normal motions outside of end range. reaching behind is still hard...feels tight. Sleeping is fine. Working is OK but uses L arm a lot more. Needs more motion to feel normal, [facility] e[facility] doctor tomorrow. Objective/Function: 120 AROM flexion. 118 AROM abd. 28 aROM external rotation. PSIS IR all on R. PROM. flexiona dn abduction 140 but very tight and firm endfeel, ext rotation 40 very tight and painful, IR to 40 degrees at 80 abduction again tight and painful. Strength isn R shoulder is not an issue for her but remains weak despite her home exercises at 4- on R vs 4+ on L. Overall not a lot of improvement in last three weeks. PT still feels she needs more ROM to be functional. Will see doctor tomorrow. Plan Plan: Pt to see doctor tomorrow for other options due to lack of progress in therapy. Possibilty of manipualtion exists and will hold chart open until we hear from patients. 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 Goal Time Frame: 4-6 Weeks Goal Progress: Not Progressing Goal 2:: Sleep through night without waking due to shoulder Goal Time Frame: 4-6 Weeks Goal Progress: Goal Met Goal 3:: I approp HEP for ROM and strength R shoulder and elbow Goal Time Frame: 6-8 Weeks Goal Progress: Goal Met Goal 4:: Pt score <20 on quick dash to show improved function Goal Time Frame: 6-8 Weeks Goal Progress: Goal Met Goal 5:: Plan to return to work Goal Time Frame: 6-8 Weeks Goal Progress: Goal Met Goal 6:: Dress normall with r UE Goal Time Frame: 4-6 Weeks Goal Progress: Not Progressing, hair! Anticipated Interventions Patient/Client Instruction: Educate patient on: Condition, Plan of Care For the Purpose of:: To decrease pain, To increase ROM, To improve muscle performance and motor function, To increase tolerance to activity/condition/position, To improve ability of physical actions for home/community/work/leisure Therapeutic Exercise to Include: Strength training, Postural training, Flexibilty training, Passive ROM, Active ROM, Scapular Strength/Stabilization For the Purpose of:: To decrease pain, To increase ROM, To improve muscle performance and motor function, To increase tolerance to activity/condition/position, To improve ability of physical actions for h ome/community/work/leisure Manual Therapy Techniques to Include: Mobilization, Soft tissue mobilization For the Purpose of:: To decrease pain, To increase ROM Cryotherapy (ice pack, ice massage): Yes For the Purpose of:: To decrease swelling/inflammation Please do not hesitate to contact me at [phone] by phone or if you have questions or concerns regarding this new plan of care! Sincerely, Finn Hernadez, DPT, OCS, CSCS
--- NOTE | 2020-09-21 11:29 | HP.PTREVAL ---
JESÚS Cochran, It has been my pleasure to treat ARACELY MARIE over the last 30 visits for R shoulder scope 05/17 SAD and biceps tenodesis. Please see the progress note below for an update on the physical therapy plan of care! Subjective: Had manipulation yesterday morning. Doctor told her it went well. Comfortable yesterday adn today a little more painful. 12/16 this morning. Slept OK last night. Started some PROM last night. Objective/Function: One day post manip measurements.: PROM R shoulder. flexion 160 tension at 145. abduction 160 tension at 140. exte rotation 75 tension at 50. IR 60, tension at 45(50 degrees abduction in supine. AROM: Flexion.120. abd 130. ext rotation 35. PSIS IR. Overall moving arm slightly better than prior to procedure but still hesitant adn hard to relax. Plan Plan: Daily for next week then 2x/week for 2 weeks for. UBE, PROM and mobs, AROM and strength ex R shoulder. goals updated and fair prognosis. She is stiffer than I like today after her manipulation yesterday but better than prior PT visits [facility]. 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 Goal Time Frame: 2-4 Weeks Goal Progress: Approp. Goal 2:: Sleep through night without waking due to shoulder Goal Time Frame: 2-4 Weeks Goal Progress: approp Goal 3:: I approp HEP for ROM and strength R shoulder and elbow Goal Time Frame: 6-8 Weeks Goal Progress: Goal Met Goal 4:: Pt score <12on quick dash to show improved function Goal Time Frame: 6-8 Weeks Goal Progress: approp Goal 5:: Plan to return to work Goal Time Frame: 6-8 Weeks Goal Progress: Goal Met Goal 6:: Dress normall with r UE Goal Time Frame: 2-4 Weeks Goal Progress: approp. Anticipated Interventions Patient/Client Instruction: Educate patient on: Condition, Plan of Care For the Purpose of:: To decrease pain, To increase ROM, To improve muscle performance and motor function, To increase tolerance to activity/condition/position, To improve ability of physical actions for home/community/work/leisure Therapeutic Exercise to Include: Strength training, Postural training, Flexibilty training, Passive ROM, Active ROM, Scapular Strength/Stabilization For the Purpose of:: To decrease pain, To increase ROM, To improve muscle performance and motor function, To increase tolerance to activity/condition/position, To improve ability of physical actions for home/community/work/leisure Manual Therapy Techniques to Include: Mobilization, Soft tissue mobilization For the Purpose of:: To decrease pain, To increase ROM Cryotherapy (ice pack, ice massage): Yes For the Purpose of:: To decrease swelling/inflammation Please do not hesitate to contact me at [phone] by phone or if you have questions or concerns regarding this new plan of care! Sincerely, Finn Hernadez, DPT, OCS, CSCS
--- NOTE | 2020-10-02 10:58 | HP.PTREVAL_ITS ---
JESÚS Cochran, It has been my pleasure to treat ARACELY MARIE over the last 36 visits for R shoulder scope 05/17 SAD and biceps tenodesis. Please see the progress note below for an update on the physical therapy plan of care! Subjective: 11/15 with movement. Comfortable for the most part at rest. Would like a couple more weeks off before returning to work as it is ouchy with movement. Had a migraine last friday and did not make it to therapy. Stretches hurt but problably would be OK pain rogers if was not strething. Objective/Function: AROM:flexion R shoulder 136, abd 150, 55 er, L5 IR. PROM: 152 felxiona dn abduction with great effort adn hard to relax. 70 IR/ER, very tight. Strength shoulder flexion 4- and abd 4- adn rotations 4- but weaker in elevated position. PT has hard time relxing all muscles to move shoulder effectively. OVerall much better motion than prior to manip. Pain is slightly worse also,. Goals appropriate adn fair prognosis to maintain improvements. Plan Plan: 3x/week for 2 weeks then weekly x 2 to ensure pain improvement, strength in elevated psotiion and ROM maintenance to improvement. Focus on strength at high level adn manual and ice as needed unless doctor changes this plan at f/u tomorrow. 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 Goal Time Frame: 2-4 Weeks Goal Progress: Goal Met Goal 2:: Sleep through night without waking due to shoulder Goal Time Frame: 2-4 Weeks Goal Progress: Goal Met Goal 3:: I approp HEP for ROM and strength R shoulder and elbow Goal Time Frame: 6-8 Weeks Goal Progress: Goal Met Goal 4:: Pt score <12on quick dash to show improved function Goal Time Frame: 6-8 Weeks Goal Progress: Progressing Goal 5:: Plan to return to work Goal Time Frame: 6-8 Weeks Goal Progress: Progressing Goal 6:: Dress normall with r UE Goal Time Frame: 2-4 Weeks Goal Progress: Progressing Anticipated Interventions Patient/Client Instruction: Educate patient on: Condition, Plan of Care For the Purpose of:: To decrease pain, To increase ROM, To improve muscle performance and motor function, To increase tolerance to activit y/condition/position, To improve ability of physical actions for home/community/work/leisure Therapeutic Exercise to Include: Strength training, Postural training, Flexibilty training, Passive ROM, Active ROM, Scapular Strength/Stabilization For the Purpose of:: To decrease pain, To increase ROM, To improve muscle performance and motor function, To increase tolerance to activity/condition/position, To improve ability of physical actions for home/community/work/leisure Manual Therapy Techniques to Include: Mobilization, Soft tissue mobilization For the Purpose of:: To decrease pain, To increase ROM Cryotherapy (ice pack, ice massage): Yes For the Purpose of:: To decrease swelling/inflammation Please do not hesitate to contact me at [phone] by phone or if you have questions or concerns regarding this new plan of care! Sincerely, Finn Hernadez, DPT, OCS, CSCS
--- NOTE | 2020-10-31 12:21 | HP.PTDCSUM ---
It has been my pleasure to treat ARACELY MARIE referred by JESÚS Cochran, with the diagnosis of R shoulder scope 05/17 SAD and biceps tenodesis for a total of 42 visit(s). Discharge Date: 10/31/20 Please see the following information for a summary of their discharge status. Subjective: Feels like R shoulder has tightened up a little over last couple weeks at home despite stretching. Has pain with stretches but it eases up after a few stretches. Getting dressed adn reaching into cupboard without pain or problems. Activitie pretty normal at home. Gets tired easy when scrubbing shower but I can do it without pain. Sleep is no problem. 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 R shoulder Pain Intensity (Out of 10): 0 % Improvement: 95 Objective/Function: 155 flexion, 150 abduction and 60 ext rotation aROM 70 IR at 90 abduction. Strength flexion 4 vs 4+ on L, abduction 4 B, ext rotation 4 R vs 4+ L. IR 4+ B. Puts hand behind head and reaches behind back as easy and effortlessly as she has at any point in her long rehab process. Subjective activities are full and only pain is wih home stretches. Overall doing very well but had a long rehab process. Goal 1:: 140 AROM elevation and 50 ext rotation to facilitate functional doing of hair and reach into cupboards. Goal Progress: Goal Met Goal 2:: Sleep through night without waking due to shoulder Goal Progress: Goal Met Goal 3:: I approp HEP for ROM and strength R shoulder and elbow Goal Progress: Goal Met Goal 4:: Pt score <12on quick dash to show improved function Goal Progress: 14 today. Goal 5:: Plan to return to work Goal Progress: Goal Met Goal 6:: Dress normall with r UE Goal Progress: Goal Met Plan: d/c to HEP Discharge Comments: Pt doing very well after a long arduaous rehab process. Has been progressing via HEP for last two weeks vs in clinic therapy and has done well. ROM has improved and she is 95% back to normal. Will f/u with doctor this afternoon and recommend d/c unless otherwise instructed. If there are questions or concerns regarding this patient's physical therapy, please feel free to call me at [phone]. Thank you for the referral of this patient. Sincerely, Finn Hernadez, DPT, OCS, CSCS
== END 2020-10-31 19:00 | disposition home or self-care (01) ==
LOC: PT 12:00
PROVIDERS: PCP Internal Medicine; Referring Provider Physician Assistant; Visit Provider Physician Assistant
DX: Z47.89 Encounter for other orthopedic aftercare (principal)
CPT/HCPCS: 97035; 97110; 97140; 97161; 97164; 97530

== ENCOUNTER → 2020-11-09 12:48 | Outpatient (CLI) | payer OTHER, SELFPAY ==
--- NOTE | 2020-11-09 12:48 | ECHOD_ITS ---
Reason For Study: palpitations Procedure This was a 2D Doppler, Color Flow transthoracic echocardiogram. The study was technically difficult. Exam performed in department. Left Ventricle Normal LV size. Left ventricular systolic function is normal. The estimated ejection fraction is 60 %. No evidence for diastolic dysfunction. No regional wall motion abnormalities noted. Right Ventricle Normal RV size. Normal systolic function. Atria Normal left atrium. Normal right atrium. No doppler evidence for ASD. Mitral Valve There is no mitral annular calcification. Normal mitral valve. Mild (1+) mitral valve insufficiency. Tricuspid Valve Normal tricuspid valve. Mild tricuspid valve insufficiency. Right ventricular systolic pressure estimated to be 22 mmHg. Aortic Valve Trisinus/trileaflet aortic valve. Normal aortic valve. Pulmonic Valve The pulmonic valve is not well visualized. Trivial pulmonic valve insufficiency. Great Vessels Normal sized aortic root. Pericardium/Pleural No pericardial effusion. MMode/2D Measurements & Calculations LVIDd: 4.6 cm IVSd: 0.76 cm Ao root diam: 2.6 cm LVIDs: 2.9 cm LVPWd: 0.76 cm RVDd: 3.5 cm FS: 37.9 % LAV(MOD-bp): 44.8 ml LA A4 area: 16.1 cm2 LA dimension(2D): 3.2 cm LAV(MOD-bp) Indexed: 24.3 ml/m2 LAV(MOD-sp2): 45.1 ml LAV(MOD-sp4): 42.4 ml RA A4 area: 13.9 cm2 Time Measurements MV dec time: 0.18 sec Doppler Measurements & Calculations MV E max deshaun: 73.0 cm/sec Lat Peak E' Deshaun: 9.8 cm/sec Med Peak E' Deshaun: 7.9 cm/sec MV A max deshaun: 53.8 cm/sec E/E' lat: 7.4 E/E' med: 9.2 MV E/A: 1.4 Ao V2 max: 103.8 cm/sec LV V1 max: 87.1 cm/sec PA V2 max: 67.8 cm/sec Ao max P.3 mmHg LV V1 max P.0 mmHg TR max deshaun: 220.0 cm/sec TR max P.4 mmHg Interpretation Summary The study was technically difficult. Left ventricular systolic function is normal. The estimated ejection fraction is 60 %. Mild (1+) mitral valve insufficiency. Mild tricuspid valve insufficiency. Trivial pulmonic valve insufficiency. Right ventricular systolic pressure estimated to be 22 mmHg. No evidence for diastolic dysfunction. Ordering Physician: Jami Story Referring Physician: Eugenie Saavedra Performed By: Farzaneh Ortega RVT, RDCS and Student
== END ==
PROVIDERS: PCP Internal Medicine; Referring Provider Physician Assistant Medical; Visit Provider Physician Assistant Medical
DX: I47.1 Supraventricular tachycardia (principal); R06.00 Dyspnea, unspecified
CPT/HCPCS: 93306

== ENCOUNTER → 2021-02-16 07:10 | Outpatient (CLI) | payer OTHER, SELFPAY ==
[2020-07-20 11:57] VITALS: BMI 29.4
--- NOTE | 2021-02-16 07:18 | BI_ITS ---
MAMMOGRAPHY - BILATERAL SCREENING REASON FOR EXAM: Female, 55 years old. Routine annual screening examination. PERTINENT HISTORY: Aunts with breast cancer. TECHNIQUE: Digital bilateral breast eddi (3D mammographic acquisition) in the CC and MLO projections. 2-D mediolateral oblique (MLO) and craniocaudad (CC) views of both breasts were obtained. CAD: Full Field Digital Mammography with Computer Added Detection was performed. COMPARISON: Comparison is made with prior study dated 01/21/2019 and 09/30/2017. FINDINGS: Breast Composition: The breasts are heterogeneously dense, which may obscure small masses. There are no dominant masses or suspicious calcifications. Stable benign-appearing bilateral axillary lymph nodes. No other significant abnormalities are identified. There has been no significant change since the prior study. BI/SCRN MAMM (CAD)W/EDDI BILAT IMPRESSION: Stable bilateral screening mammogram. Yearly follow-up mammogram recommended. (A) ASSESSMENT CATEGORY: BIRADS Category 2: Benign. A letter regarding these results will be sent to the patient by the facility within 30 days. Approximately 10% of breast cancers are not detected by mammography. A normal mammogram should not delay biopsy of a clinically suspicious abnormality. [id number] Electronically Signed: Olu Edwards MD at 8:21 EDT , Service support ,
== END ==
PROVIDERS: PCP Internal Medicine; Referring Provider Internal Medicine; Visit Provider Internal Medicine
DX: Z12.31 Encounter for screening mammogram for malignant neoplasm of breast (principal)
CPT/HCPCS: 77063; 77067

== ENCOUNTER → 2021-06-08 10:35 | Outpatient (CLI) | payer OTHER, SELFPAY ==
[2021-06-08 13:11] LABS: Thyroid Stim Hormone (TSH) 0.88 uIU/mL (0.358-3.74)
== END ==
PROVIDERS: PCP Internal Medicine; Referring Provider Internal Medicine; Visit Provider Internal Medicine
DX: Z00.00 Encounter for general adult medical examination without abnormal findings (principal)
CPT/HCPCS: 36415; 84443

== ENCOUNTER → 2022-04-10 | Outpatient (CLI) | payer OTHER, SELFPAY ==
[2022-04-10 12:38] LABS: Vitamin D,25 Hydroxy 51.2 ng/mL
[2022-04-10 12:44] LABS: Thyroid Stim Hormone (TSH) 0.93 uIU/mL (0.358-3.74)
== END | disposition home or self-care (01) ==
LOC: LAB 11:36
PROVIDERS: PCP Internal Medicine; Referring Provider Nurse Practitioner Women's Health; Visit Provider Nurse Practitioner Women's Health
DX: Z13.21 Encounter for screening for nutritional disorder (principal); Z13.29 Encounter for screening for other suspected endocrine disorder
CPT/HCPCS: 36415; 82306; 84443

== ENCOUNTER → 2022-05-09 | Outpatient (CLI) | payer OTHER, SELFPAY ==
--- NOTE | 2022-05-09 12:27 | BI_ITS ---
MAMMOGRAPHY - BILATERAL SCREENING REASON FOR EXAM: Female, 56 years old. Routine annual screening examination. PERTINENT HISTORY: Aunts with breast cancer. TECHNIQUE: Digital bilateral breast eddi (3D mammographic acquisition) in the CC and MLO projections. 2-D mediolateral oblique (MLO) and craniocaudad (CC) views of both breasts were obtained. CAD: Full Field Digital Mammography with Computer Added Detection was performed. COMPARISON: Comparison is made with prior study of 02/16/2021 and 01/21/2019. FINDINGS: Breast Composition: The breasts are heterogeneously dense, which may obscure small masses. There are no dominant masses or suspicious calcifications. Stable benign-appearing bilateral axillary lymph nodes. No other significant abnormalities are identified. There has been no significant change since the prior study. BI/SCRN MAMM (CAD)W/EDDI BILAT IMPRESSION: Stable bilateral screening mammogram. Yearly follow-up mammogram recommended. (A) ASSESSMENT CATEGORY: BIRADS Category 2: Benign. A letter regarding these results will be sent to the patient by the facility within 30 days. Approximately 10% of breast cancers are not detected by mammography. A normal mammogram should not delay biopsy of a clinically suspicious abnormality. [id number] Electronically Signed: Olu Edwards MD at 13:15 EDT ,
== END | disposition home or self-care (01) ==
LOC: OPBI 12:26
PROVIDERS: PCP Internal Medicine; Visit Provider Nurse Practitioner Women's Health
DX: Z12.31 Encounter for screening mammogram for malignant neoplasm of breast (principal); Z80.3 Family history of malignant neoplasm of breast
CPT/HCPCS: 77063; 77067

== ENCOUNTER → 2022-11-21 | Outpatient (CLI) | payer OTHER, SELFPAY ==
[2022-11-21 10:34] LABS: Absolute Lymphocyte Count 2.19 X10^3/uL (0.83-4.51); Absolute Neutrophil Count 4.7 X10^3/uL (2.0-7.7); Basophil# 0.04 X10^3/uL; Basophil% 0.5 % (0-1); Eosinophils% 1.3 % (0-5); Hematocrit 43.7 % (37-47); Hemoglobin 14.6 g/dL (12.0-15.0); Lymphocyte # 2.19 X10^3/ul (0.83-4.51); Lymphocyte % 28.2 % (19-41); Mean Corp Hgb Conc 33.4 g/dL (32-36); Mean Corpuscular Hgb 30.7 pg (27.0-32.0); Mean Platelet Vol. 9.5 fl (6.2-12.0); Monocyte# 0.73 X10^3/uL; Monocyte% 9.4 % (0-10); NRBC Flagged by Analyzer 0 % (0-5); Neutrophil # 4.68 X10^3/uL (2.7-7.7); Neutrophil % 60.2 % (47-70); Platelet Count 317 K/mm3 (150-450); RBC Distribution Width CV 12.7 % (11.6-14.6); RBC Distribution Width SD 43.4 fl (35.1-43.9); Red Blood Count 4.75 M/mm3 (4.2-5.4); White Blood Count 7.8 K/mm3 (4.4-11.0)
[2022-11-21 11:02] LABS: AST(SGOT) 20 U/L (15-37); Alanine Aminotransfer ALT/SGPT 32 U/L (13-56); Albumin, Serum 3.8 g/dL (3.2-5.0); Alkaline Phosphatase 64 U/L (45-117); Anion Gap 6 (5-15); BUN 15 mg/dL (7-18); BUN/Creat Ratio 19.5 RATIO (10-20); Calcium,Total 9.2 mg/dL (8.5-10.1); Chloride 105 mmol/L (98-107); Cholesterol 198 mg/dL (200); Creatinine, Serum 0.77 mg/dL (0.55-1.02); EST Glomerular Filtration Rate 83 mL/min (>60); Est Glom Filt Rate - Afr Amer 100 mL/min (>60); Globulin 3.9 g/dL (2.2-4.2); Glucose 101 mg/dL (74-106); High Density Lipoprotein 47 mg/dL; Potassium 4.2 mmol/L (3.5-5.1); Protein, Total 7.7 g/dL (6.4-8.2); Sodium Level 139 mmol/L (136-145); Triglycerides 182 mg/dL; Very Low Density Lipoprotein 36 mg/dL (5-40)
== END | disposition home or self-care (01) ==
LOC: LAB 10:12
PROVIDERS: PCP Internal Medicine; Referring Provider Internal Medicine; Visit Provider Internal Medicine
DX: Z00.00 Encounter for general adult medical examination without abnormal findings (principal)
CPT/HCPCS: 36415; 80053; 80061; 85025

== ENCOUNTER → 2022-12-27 | Outpatient (CLI) | payer OTHER, SELFPAY ==
--- NOTE | 2022-12-27 07:24 | MRI_ITS ---
STUDY: MRI CERVICAL SPINE WITHOUT CONTRAST REASON FOR EXAM: Female, 57 years old. NECK pain AND STIFFNESS, HEADACHES INJURY YRS AGO TECHNIQUE: Standardized fat and water weighted pulse sequences were obtained in the sagittal and axial planes. COMPARISON: MRI cervical spine without contrast 11/12/2019. Cervical spine radiographs 12/06/2022. FINDINGS: Normal foramen magnum and brainstem-cervical cord junction. Normal craniovertebral junction. Normal anterior atlantoaxial articulation. Normal odontoid process. Normal cervical lordosis. Normal vertebral bodies and posterior osseous elements. C2-3: Normal endplates. Normal disc height, signal and morphology. Normal central canal and intervertebral neural foramina. C3-4: Normal endplates. Normal disc height, signal and morphology. Normal central canal and intervertebral neural foramina. C4-5: Normal endplates. Normal disc height, signal and morphology. Normal central canal and intervertebral neural foramina. C5-6: Normal endplates. Minimal disc space height narrowing. Normal central canal and intervertebral neural foramina. Asymmetric bone spurs in the uncovertebral joints, right greater than left. C6-7: Normal endplates. Normal disc height, signal and morphology. Normal central canal and intervertebral neural foramina. Minimal bone spurs in both uncovertebral joints. C7-T1: Normal endplates. Normal disc height, signal and morphology. Normal central canal and intervertebral neural foramina. T1-T2, T2-T3, T3-T4, T4-T5 and T5-T6: (Sagittal only). Normal endplates. Normal disc height and morphology. Normal central canal and intervertebral neural foramina. Normal cervical cord. Normal visualized soft tissue structures. MRI/Spine Cervical (Routine) IMPRESSION: 1. No MRI evidence of cervical extruded disc fragment, disc protrusion, spinal stenosis or cervical nerve root displacement. 2. Minimal C5-C6 disc space height narrowing with asymmetric bone spurs arising from the uncovertebral joints, right greater than left. 3. Normal cervical spinal cord. 4. No significant interval change when compared to 11/12/2019. Electronically Signed: Lizandro Pride MD at 9:03 EDT ,
== END | disposition home or self-care (01) ==
LOC: MRI 07:24
PROVIDERS: PCP Internal Medicine; Referring Provider Orthopaedic Surgery; Visit Provider Orthopaedic Surgery
DX: M50.30 Other cervical disc degeneration, unspecified cervical region (principal)
CPT/HCPCS: 72141

== ENCOUNTER 2023-03-24 10:01 | Day surgery (SDC) | payer OTHER, SELFPAY ==
[2023-03-24] VITALS (7 sets, daily range): BP systolic 95–110; BP diastolic 57–73; PULSE 59–80; RESP 15–18; TEMP 36.1–36.8; O2SAT 97–100; BMI 25.3
[2023-03-24] MEDS: Lactated Ringers 1,000 ML 15 ML IV (10:30)
--- NOTE | 2023-03-24 10:30 | RAD_ITS ---
PROCEDURE: Cervical facet steroid injections DATE OF EXAMINATION: March 24, 2023 INDICATION: Female, 57 years old. Chronic neck pain. FLUOROSCOPY TIME (if supplied): 17 seconds. 4 images are submitted RAD/Spine 1 View Any Level IMPRESSION: Intraoperative images are provided for steroid injections on the right at C2-3, C4-5, and C5-6. Electronically Signed: Gilberto Haynes MD at 13:24 EDT Reading Location ID and State: [id number] / Unknown , Service support ,
[2023-03-24] MEDS: MethylPREDNISolone Acetate 80 MG/ML Vial (11:07)
--- NOTE | 2023-03-24 11:10 | OP.PCM_ITS ---
Report of Operation Date of Procedure: 03/24/23 Description of Surgical Findings:: PREOPERATIVE DIAGNOSIS: Cervical spondylosis, cervical degenerative disc disease, cervical facet arthropathy POSTOPERATIVE DIAGNOSIS: Cervical spondylosis, cervical degenerative disc disease, cervical facet arthropathy PROCEDURE PERFORMED: Right-sided cervical facet steroid injection, C3, C4, C5, and C6. ANESTHESIA: MAC. BLOOD LOSS: Minimal. COMPLICATIONS: None. DESCRIPTION OF PROCEDURE: History and physical of today was reviewed. Risks and benefits of the procedure were explained. The patient understood and agreed to proceed. Informed consent was obtained. IV inserted per routine protocol. The patient was taken to the operating room and placed in the prone position with a pillow positioned underneath the chest. The neck area was prepped and draped in a sterile fashion using iodine x3. Under fluoroscopy guidance on an AP view, the C3 through C6 vertebral bodies were visualized at approximately 10- degree angle, starting on the right C3, ending on the right C6, passing through the C4 and C5. Using a 25-gauge 3-1/2-inch spinal needle, the needle was advanced via the skin. The tip of the needle was maneuvered and directed t owards the epiphyseal junction of each corresponding vertebra. Once the tip of the needle was at the vicinity of the medial branch, the needle was pulled approximately 2 mm off the bone. After negative aspiration of blood or CSF and confirmation on AP, oblique as well as lateral view, a total of 4 mL of preservative-free 0.25% Marcaine with 80 mg of Depo-Medrol was injected in divided doses between those four levels. The needles were then removed intact. The patient experienced no sign or symptoms of intrathecal or intravascular injection. The patient experienced no paresthesia. The procedure was completed without any apparent difficulty or any complications. The patient appeared to tolerate it well. ASSESSMENT AND PLAN: This is a 57-year-old female with cervical spondylosis, cervical degenerative disc disease, cervical facet arthropathy status post right-sided cervical facet steroid injection C3-C6, patient will continue her current medications, patient will follow in approximately 2 weeks for reevaluation.
== END 2023-03-24 12:05 | disposition home or self-care (01) ==
LOC: SDC 10:04 → AC 10:04
PROVIDERS: PCP Internal Medicine; Referring Provider Anesthesiology Pain Medicine; Visit Provider Anesthesiology Pain Medicine
PROC: 3E0U3BZ Introduction of Anesthetic Agent into Joints, Percutaneous Approach (ICD-10-PCS; CPT 64490; principal; 2023-03-24 11:25)
DX: M47.812 Spondylosis without myelopathy or radiculopathy, cervical region (principal); M50.30 Other cervical disc degeneration, unspecified cervical region; G90.9 Disorder of the autonomic nervous system, unspecified; E78.2 Mixed hyperlipidemia; Z86.16 Personal history of COVID-19; I10 Essential (primary) hypertension; M48.02 Spinal stenosis, cervical region; Z79.899 Other long term (current) drug therapy
CPT/HCPCS: 64492; 64491; 64490; 72020; J7120

== ENCOUNTER → 2023-07-08 | Outpatient (CLI) | payer OTHER, SELFPAY ==
--- NOTE | 2023-07-08 09:31 | BI_ITS ---
MAMMOGRAPHY - BILATERAL SCREENING REASON FOR EXAM: Female, 57 years old. Routine annual screening examination. PERTINENT HISTORY: Aunts with breast cancer. TECHNIQUE: Digital bilateral breast eddi (3D mammographic acquisition) in the CC and MLO projections. 2-D mediolateral oblique (MLO) and craniocaudad (CC) views of both breasts were obtained. CAD: Full Field Digital Mammography with Computer Added Detection was performed. COMPARISON: Comparison is made with prior study May 09, 2022 and February 16, 2021. FINDINGS: Breast Composition: The breasts are heterogeneously dense, which may obscure small masses. There are no dominant masses or suspicious calcifications. Stable small benign appearing bilateral axillary nodes. No other significant abnormalities are identified. There has been no significant change since the prior study. BI/SCRN MAMM (CAD)W/EDDI BILAT IMPRESSION: Stable bilateral screening mammogram. Yearly follow-up mammogram recommended. (A) ASSESSMENT CATEGORY: BIRADS Category 2: Benign. A letter regarding these results will be sent to the patient by the facility within 30 days. Approximately 10% of breast cancers are not detected by mammography. A normal mammogram should not delay biopsy of a clinically suspicious abnormality. [id number] Electronically Signed: Olu Edwards MD at 14:06 EDT ,
--- NOTE | 2023-07-08 09:33 | BD_ITS ---
STUDY: DUAL ENERGY X-RAY ABSORPTIOMETRY / DXA REASON FOR EXAM: Female, 57 years old. [id number] TECHNIQUE: Bone Mineral Density (BMD) measurements of lumbar spine and bilateral hips were obtained. COMPARISON: None. FINDINGS: Lumbar Spine (L1-L4): g/cm2 (0.876) / T-score (-2.0) / Z-score (-0.9) Findings are suggestive of osteopenia with a moderate fracture risk. Left Femur Total: g/cm2 (0.729) / T-score (-1.7) / Z-score (-1.0) Left Femoral Neck: g/cm2 (0.584) / T-score (-2.4) / Z-score (-1.3) Right Femur Total: g/cm2 (0.685) / T-score (-2.1) / Z-score (-1.4) Right Femoral Neck: g/cm2 (0.525) / T-score (-2.9) / Z-score (-1.8) BD/Dexa Bone Density Study IMPRESSION: The patient is considered osteoporotic as outlined below according to World Emanuel Organization (WHO) criteria with a high fracture risk. Reference Information: The T-score is the number of standard deviations above or below the standard which is normal for young adults at their peak bone mineral density. The World Health Organization (WHO) interprets the T-scores as follows: Above -1 Normal bone density Between -1 and -2.5 Osteopenia Equal to / or below -2.5 Osteoporosis As a practical clinical guideline, osteopenia may be graded as follows: Mild -1 through -1.5 Moderate -1.6 through -2.0 Severe -2.1 through -2.4 The Z-score is the number of standard deviations above or below age-matched controls. A Z-score of less than -1.5 would be considered abnormal. References: 1. NIH Osteoporosis and Related Bone Diseases www osteo.org 2. International Society for Clinical Densitometry www iscd.org 3. National Osteoporosis Foundation www nof.org Electronically Signed: Olu Edwards MD at 15:31 EDT ,
== END | disposition home or self-care (01) ==
LOC: OPBD 09:29
PROVIDERS: PCP Internal Medicine; Referring Provider Internal Medicine; Visit Provider Internal Medicine
DX: Z12.31 Encounter for screening mammogram for malignant neoplasm of breast (principal); Z80.3 Family history of malignant neoplasm of breast; Z78.0 Asymptomatic menopausal state
CPT/HCPCS: 77063; 77067; 77080

== ENCOUNTER 2023-07-18 10:00 | Outpatient (RCR) | payer OTHER, SELFPAY ==
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
--- NOTE | 2023-09-04 08:03 | HP.PT.NRP ---
Patient Information Patient Information: ARACELY MARIE was seen in my office for initial evaluation on 06/19/23. The following Plan of Care was established for this patient: POC Established Initial Frequency: 2x /Week Initial Duration: 4 Weeks Anticipated Interventions Patient/Client Instruction: Educate patient on: Benefits of Fitness Program Therapeutic Exercise to Include: Strength training, Endurance training, Body mechanics, Postural training, Neuromotor development and Scapular Strength/Stabilization Manual Therapy Techniques to Include: Mobilization and Soft tissue mobilization TENS: Yes Thermo therapy (hot pack): Yes Ultrasound (thermal/non thermal): Yes Intermittent cervical traction: Yes (After trial of manual traction) Last Seen Last Seen: This patient was last seen in our office . Pertinent comments regarding their Physical therapy will appear below: Patient requested home exercise program to continue progression at home- encouraged to call if questions- appropriate for d/c at this time. At this point I will be discontinuing this patient from physical therapy. I would be happy to see this patient again in the future if found appropriate by the physician. Thank you! Gi Fuchs, MITCHELT Balance/Gait/Functional tests Balance/Special Test Scores Oswestry Neck Score: 5
== END 2023-07-18 19:00 | disposition home or self-care (01) ==
LOC: PT 10:00
PROVIDERS: PCP Internal Medicine; Visit Provider Anesthesiology Pain Medicine
DX: M50.30 Other cervical disc degeneration, unspecified cervical region (principal); M48.02 Spinal stenosis, cervical region; M47.812 Spondylosis without myelopathy or radiculopathy, cervical region
CPT/HCPCS: 97035; 97110; 97140; 97162

== ENCOUNTER 2023-12-08 10:04 | Day surgery (SDC) | payer OTHER, SELFPAY ==
[2023-12-08 10:23] VITALS: BP 111/64; PULSE 76; RESP 16; TEMP 36.1; O2SAT 100; BMI 24.6
[2023-12-08] MEDS: Lactated Ringers 1,000 ML 15 ML IV (10:26)
--- NOTE | 2023-12-08 12:05 | RAD_ITS ---
STUDY: Cervical Spine, Intraprocedural Exam REASON FOR EXAM: Cervical epidural steroid injection TECHNIQUE: 3 fluoroscopic images were obtained on a C-arm for ablation. The examination was performed for documentation. COMPARISON: No relevant prior comparison study available FINDINGS: AP views of the cervical spine were obtained on a C-arm. The examination was performed for documentation only. The fluoroscopy time was 6.1 seconds. The radiation dose is 0.56 mGy. RAD/Cerv Spine 2 or 3 Views IMPRESSION: Intraprocedural exam as described above. Electronically Signed: Wes Rodas MD at 14:02 EDT ,
[2023-12-08] MEDS: MethylPREDNISolone Acetate 80 MG/ML Vial (12:10)
[2023-12-08 12:29] VITALS: BP 111/64; BP 117/69; PULSE 74; RESP 16; TEMP 36.8; O2SAT 99
--- NOTE | 2023-12-08 12:39 | OP.PCM_ITS ---
Report of Operation Date of Procedure: 12/08/23 Description of Surgical Findings:: PREOPERATIVE DIAGNOSES: Cervical spinal stenosis, cervical degenerative disc disease, cervical radiculopathy POSTOPERATIVE DIAGNOSES: Cervical spinal stenosis, cervical degenerative disc disease, cervical radiculopathy PROCEDURE PERFORMED: Cervical epidural steroid injection, interlaminar at C7-T1 under fluoroscopy guidance. ANESTHESIA: Local. BLOOD LOSS: Minimal. COMPLICATIONS: None. DESCRIPTION OF PROCEDURE: History and physical of today was reviewed. Risks and benefits of the procedure were explained. The patient understood and agreed to proceed. Informed consent was obtained. IV inserted per routine protocol. The patient was taken to the operating room and placed in the prone position with a pillow positioned underneath the chest. The neck area was prepped and draped in a sterile fashion using iodine x3. Under fluoroscopy guidance on an AP view, the C7-T1 interlaminar space was identified. The skin and subcutaneous tissue was anesthetized with approximately 3 mL of 1% lidocaine using a 25-gauge regular needle. Under direct visualization on fluoroscopy, on AP view, using a 20-gauge 2-1/2-inch Tuohy needle, the needle was advanced via the skin. The tip of the needle was maneuvered and directed towards the interlaminar space at C7- T1. Loss of resistance technique was carried to air. Loss of resistance technique was encountered. Once encountered, after negative aspiration for blood and CSF, a total of 1 mL of contrast was injected to confirm correct placement of the needle as well as cephalocaudal spread of the contrast. Confirmation was obtained on AP as well as lateral view. After repeated negative aspiration and confirmation, a total of 3 mL of preservative-free normal saline and 80 mg of Depo-Medrol was injected easily. The needle was then removed intact. The patient experienced no sign or symptoms of intrathecal or intravascular injection. The patient experienced no paresthesia. The procedure was completed without any apparent difficulty or any complications. The patient appeared to tolerate it well. ASSESSMENT AND PLAN: This is a 58-year-old female with cervical spine radiculopathy, cervical spinal stenosis, cervical degenerative disc disease status post cervical epidural steroid injection interlaminar at C7-T1 under fluoroscopic guidance, patient will continue current medications, patient will follow in approximately 2 weeks for reevaluation
== END 2023-12-08 12:45 | disposition home or self-care (01) ==
LOC: SDC 10:05 → AC 10:12
PROVIDERS: PCP Internal Medicine; Referring Provider Anesthesiology Pain Medicine; Visit Provider Anesthesiology Pain Medicine
PROC: 3E0S3BZ Introduction of Anesthetic Agent into Epidural Space, Percutaneous Approach (ICD-10-PCS; CPT 62320; principal; 2023-12-08 11:45)
DX: M48.02 Spinal stenosis, cervical region (principal); M50.10 Cervical disc disorder with radiculopathy, unspecified cervical region; Z90.49 Acquired absence of other specified parts of digestive tract; M47.812 Spondylosis without myelopathy or radiculopathy, cervical region; M50.30 Other cervical disc degeneration, unspecified cervical region; Z79.899 Other long term (current) drug therapy
CPT/HCPCS: 62320; 64490; 72040; J7120

== ENCOUNTER 2024-01-26 08:11 | Day surgery (SDC) | payer OTHER, SELFPAY ==
[2024-01-26 08:33] VITALS: BP 97/69; PULSE 73; RESP 16; TEMP 36.4; O2SAT 100; BMI 23.8
[2024-01-26] MEDS: Lactated Ringers 1,000 ML 15 ML IV (08:39)
--- NOTE | 2024-01-26 09:40 | RAD_ITS ---
STUDY: X-RAY - CERVICAL SPINE REASON FOR EXAM: Female, 58 years old. History of steroid injection 2). TECHNIQUE: 4 intraprocedural digital documentation view(s) of the cervical spine were obtained. COMPARISON: None FINDINGS: 4 intraprocedural digital documentation views show a needle at the C4-5 interspace. RAD/Cerv Spine 4 or 5 Views IMPRESSION: Digital intraprocedural images as described. Electronically Signed: Pancho Cruz MD at 11:00 EDT ,
[2024-01-26] MEDS: MethylPREDNISolone Acetate 80 MG/ML Vial (09:45)
[2024-01-26 09:55] VITALS: BP 81/58; BP 97/69; PULSE 84; RESP 16; TEMP 36.3; O2SAT 97
--- NOTE | 2024-01-26 09:55 | OP.PCM_ITS ---
Report of Operation Date of Procedure: 01/26/24 Description of Surgical Findings:: PREOPERATIVE DIAGNOSIS: Cervical spondylosis, cervical facet arthropathy, cervical degenerative disc disease POSTOPERATIVE DIAGNOSIS: Cervical spondylosis, cervical facet arthropathy, cervical degenerative disc disease PROCEDURE PERFORMED: Right-sided cervical facet steroid injection, C3, C4, C5, and C6. ANESTHESIA: MAC. BLOOD LOSS: Minimal. COMPLICATIONS: None. DESCRIPTION OF PROCEDURE: History and physical of today was reviewed. Risks and benefits of the procedure were explained. The patient understood and agreed to proceed. Informed consent was obtained. IV inserted per routine protocol. The patient was taken to the operating room and placed in the prone position with a pillow positioned underneath the chest. The neck area was prepped and draped in a sterile fashion using iodine x3. Under fluoroscopy guidance on an AP view, the C3 through C6 vertebral bodies were visualized at approximately 10- degree angle, starting on the right C3, ending on the right C6, passing through the C4 and C5. Using a 25-gauge 3-1/2-inch spinal needle, the needle was advanced via the skin. The tip of the needle was maneuvered and directed t owards the epiphyseal junction of each corresponding vertebra. Once the tip of the needle was at the vicinity of the medial branch, the needle was pulled approximately 2 mm off the bone. After negative aspiration of blood or CSF and confirmation on AP, oblique as well as lateral view, a total of 4 mL of preservative-free 0.25% Marcaine with 80 mg of Depo-Medrol was injected in divided doses between those four levels. The needles were then removed intact. The patient experienced no sign or symptoms of intrathecal or intravascular injection. The patient experienced no paresthesia. The procedure was completed without any apparent difficulty or any complications. The patient appeared to tolerate it well. ASSESSMENT AND PLAN: This is a 58-year-old female with cervical spondylosis, cervical degenerative disc disease, cervical facet arthropathy status post right-sided cervical facet steroid injection C3-C6, patient will continue her current medications, patient will follow up in approximately 2 weeks for reevaluation.
[2024-01-26 10:00] VITALS: BP 85/55; BP 97/69; PULSE 64; RESP 16; O2SAT 100
[2024-01-26 10:05] VITALS: BP 88/56; BP 97/69; PULSE 66; RESP 16; O2SAT 100
[2024-01-26 10:12] VITALS: BP 97/69; BP 98/67; PULSE 65; RESP 16; TEMP 36.2; O2SAT 99
[2024-01-26 10:32] VITALS: BP 97/69
== END 2024-01-26 10:38 | disposition home or self-care (01) ==
LOC: SDC 08:12 → AC 08:13
PROVIDERS: PCP Internal Medicine; Visit Provider Anesthesiology Pain Medicine
PROC: 3E0U3BZ Introduction of Anesthetic Agent into Joints, Percutaneous Approach (ICD-10-PCS; CPT 64490; principal; 2024-01-26 09:45)
DX: M47.812 Spondylosis without myelopathy or radiculopathy, cervical region (principal); M50.31 Other cervical disc degeneration, high cervical region; M46.92 Unspecified inflammatory spondylopathy, cervical region; M48.02 Spinal stenosis, cervical region
CPT/HCPCS: 64491; 64492; 01992; 64490; 72050

== ENCOUNTER → 2024-06-19 | Outpatient (CLI) | payer OTHER, SELFPAY ==
[2024-06-19 10:52] LABS: Cholesterol 160 mg/dL (200); High Density Lipoprotein 68 mg/dL; Triglycerides 101 mg/dL; Very Low Density Lipoprotein 20 mg/dL (5-40)
== END | disposition home or self-care (01) ==
LOC: LAB 09:15
PROVIDERS: PCP Internal Medicine; Referring Provider Internal Medicine; Visit Provider Internal Medicine
DX: E78.00 Pure hypercholesterolemia, unspecified (principal); M81.0 Age-related osteoporosis without current pathological fracture
CPT/HCPCS: 36415; 80061; 82306; 84443

== ENCOUNTER → 2024-07-29 | Outpatient (CLI) | payer OTHER, SELFPAY ==
--- NOTE | 2024-07-29 10:10 | BI_ITS ---
MAMMOGRAPHY - BILATERAL SCREENING REASON FOR EXAM: Female, 58 years old. Routine annual screening examination. PERTINENT HISTORY: Aunts with breast cancer. TECHNIQUE: Digital bilateral breast eddi (3D mammographic acquisition) in the CC and MLO projections. 2-D mediolateral oblique (MLO) and craniocaudad (CC) views of both breasts were obtained. CAD: Full Field Digital Mammography with Computer Added Detection was performed. COMPARISON: Comparison is made with prior study July 08, 2023 and May 09, 2022. FINDINGS: Breast Composition: The breasts are heterogeneously dense, which may obscure small masses. There are no dominant masses or suspicious calcifications. Stable bilateral fat containing axillary lymph nodes. No other significant abnormalities are identified. There has been no significant change since the prior study. BI/SCRN MAMM (CAD)W/EDDI BILAT IMPRESSION: Stable bilateral screening mammogram. Yearly follow-up mammogram recommended. (A) ASSESSMENT CATEGORY: BIRADS Category 2: Benign. A letter regarding these results will be sent to the patient by the facility within 30 days. Approximately 10% of breast cancers are not detected by mammography. A normal mammogram should not delay biopsy of a clinically suspicious abnormality. [id number] Electronically Signed: Olu Edwards MD at 11:22 EST ,
== END | disposition home or self-care (01) ==
LOC: OPBI 10:09
PROVIDERS: PCP Internal Medicine; Referring Provider Internal Medicine; Visit Provider Internal Medicine
DX: Z12.31 Encounter for screening mammogram for malignant neoplasm of breast (principal); Z80.3 Family history of malignant neoplasm of breast
CPT/HCPCS: 77063; 77067

== ENCOUNTER 2024-10-19 09:04 | Emergency (ER) | payer OTHER, SELFPAY ==
[2024-10-19 09:04] VITALS: BP 129/65; PULSE 112; RESP 19; TEMP 36.3; O2SAT 99; BMI 23.5
[2024-10-19 11:11] VITALS: BP 111/57; PULSE 84; RESP 16; TEMP 36.9; O2SAT 98
--- NOTE | 2024-10-19 11:54 | ED.VIS.DYS ---
HPI History of Present Illness Chief Complaint: Cold Sx Informant: patient and spouse/S.O. Narrative Narrative: 59-year-old presenting to the emergency room with COVID-19 and vomiting. Patient states that she went to the urgent care this morning where she tested positive for COVID-19. She states that she was pale and experiencing nausea and vomiting. She notes a low back pain that radiates down posteriorly into her legs. No diarrhea. She notes mild cough. She notes mild congestion. She notes some discomfort posterior neck. She generally states that she feels poorly. Urgent care stated that she was pale and tachycardic. She has a history of SVT. She also has a history of autonomic dysfunction. She is on metoprolol and fludrocortisone. She denies any rashes. [facility] Medical History Nausea vomiting and diarrhea Low back pain Wears glasses Wears contact lenses Wears partial dentures Alcohol use History of steroid therapy Arthritis Bladder disease Back pain Migraine headache Non-smoker History of echocardiogram Cardiology follow-up encounter COVID SVT (supraventricular tachycardia) Autonomic dysfunction Atrophic vaginitis Endometriosis Home Medications ?Medication ?Instructions ?Recorded ?Last Taken ?Type tdoniid-naefirdhgegnx-afrspdkl 250 1 tab PO ONCE PRN Migraine Symptoms 05/25/18 Unknown History mg-250 mg-65 mg tablet (Excedrin Migraine) mirabegron 50 mg tablet,extended 50 mg PO DAILY 05/17/20 Unknown History release 24 hr multivitamin 1 tab PO DAILY 09/14/21 Unknown History cyclobenzaprine 10 mg tablet 10 mg PO HS PRN muscle spasm 01/01/23 Unknown History alendronate 70 mg tablet (Fosamax) 70 mg PO QWEEK 10/30/23 Unknown History cholecalciferol (vitamin D3) 25 25 mcg PO DAILY 10/30/23 Unknown History mcg (1,000 unit) capsule fludrocortisone 0.1 mg tablet 0.1 mg PO QHS tachycardia #90 tabs 10/06/24 Unknown Rx metoprolol succinate 25 mg 25 mg PO QHS bp #90 tabs 10/06/24 Unknown Rx tablet,extended release 24 hr Allergy/AdvReac Type Severity Reaction Status Date / Time hydrocodone (From [place]) AdvReac insomnia Verified 10/19/24 09:07 Family History Mother Cancer lung- smoker COPD (chronic obstructive pulmonary disease) Father Cancer hodgkins lymphoma Grandmother Diabetes Aunt Cancer bladder Surgical History Hx of shoulder surgery Hx of shoulder surgery History of tubal ligation History of hysterectomy History of cholecystectomy History of appendectomy Social History Smoking Status: Never smoker alcohol intake: current alcohol intake frequency: holidays/special occasions only substance use type: does not use caffeine: Yes what type of physical activity do you participate in: none seatbelt use: always do you feel safe at home: Yes 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 [employer] ROS ROS ED Constitutional Constitutional ED: Reports chills and fever(s); Denies weight loss Eyes Eyes: Denies change in vision or diplopia ENT ENT ED: Reports rhinorrhea; Denies ear pain or sore throat Cardiovascular Cardiovascular: Denies chest pain, orthopnea, palpitations or racing heartbeat Respiratory/Chest Respiratory/Chest: Reports cough; Denies dyspnea or orthopnea Gastrointestinal Gastrointestinal: Reports nausea and vomiting; Denies abdominal pain or diarrhea Genitourinary Genitourinary ED: Denies dysuria, hematuria or urinary frequency Musculoskeletal Musculoskeletal: Reports back pain; Denies arthralgias or myalgias Integumentary Denies abscess or rash Neurologic Neurologic: Denies headache(s) or weakness Psychiatric Psychiatric: Denies anxiety, depression, suicidal ideation or suicidal thoughts Endocrine Endocrinology: Denies polydipsia, polyphagia or polyuria Allergic/Immunologic Allergic/Immunologic ED: Denies mouth swelling, tongue swelling or urticaria EXAM Physical Exam Const Vital Signs: 10/19/24 09:04 10/19/24 11:11 Temperature 97.4 F L 98.4 F Temperature Source Temporal Oral Pulse Rate 112 H 84 Respiratory Rate 19 H 16 Blood Pressure 129/65 H 111/57 L Blood Pressure Mean 86 75 Pulse Ox 99 98 Oxygen Delivery Method Room Air Room Air Positive well nourished and well developed General Appearance ED: well developed and NAD HEENT Reports normocephalic, head/scalp atraumatic and moist mucous membranes Eyes PERRL and EOMs intact bilaterally Neck no lymphadenopathy, supple and no JVD Resp normal respiratory effort and clear to auscultation bilaterally Cardio regular rate, regular rhythm and no murmurs GI normal to inspection, nondistended, normoactive bowel sounds and non-tender Palpation: soft Back/Spine no CVA tenderness and normal ROM Back/Spine Narrative: Patient moves slowly from a lying to a sitting position. She points to the low back as the area of discomfort. I do not appreciate any swelling of the low back erythema or obvious tissue texture changes to suggest underlying infection. Mild tenderness to palpation of the paraspinal musculature. No spinal tenderness. Extremity normal to inspection General Extremety ED: Negative for edema General Extremity: Negative for edema Neuro oriented x3 and CN's II-XII intact bilaterally Neuro Narrative: Patellar Achilles DTR +2 Sensorium / Orientation: alert Motor Exam: strength 5/5 throughout Psych mental status grossly normal Mood & Affect: Negative for depressed or tearful Skin no rashes or lesions noted and no wounds Discharge Plan Triage Chief Complaint: Cold Sx Other Complaint: Back ED Provider: Shan Yanez Dx/Rx/DC Orders Prescriptions: No Action bnaetct-iobxujqpstgah-mceljvza [Excedrin Migraine] 250-250-65 mg tablet 1 tab PO ONCE PRN (Reason: Migraine Symptoms) multivitamin Tablet 1 tab PO DAILY alendronate [Fosamax] 70 mg tablet 70 mg PO QWEEK cholecalciferol (vitamin D3) 25 mcg (1,000 unit) capsule 25 mcg PO DAILY cyclobenzaprine 10 mg tablet 10 mg PO HS PRN (Reason: muscle spasm) ondansetron 4 mg disintegrating tablet 4 mg tablet,disintegrating 0RF mirabegron 50 MG tablet extended release 24 hr 50 mg PO DAILY fludrocortisone 0.1 mg tablet 0.1 mg PO QHS Qty: 90 3RF metoprolol succinate 25 mg tablet extended release 24 hr 25 mg PO QHS Qty: 90 3RF Primary Care Provider: Eugenie Saavedra Referrals: Eugenie Saavedra MD [Primary Care Provider] - Print Language: Amharic
[2024-10-19] MEDS: Ketorolac 30 MG/ML Syringe IV (12:11)
[2024-10-19] MEDS: Ondansetron 4 MG/2 ML Vial IV (12:11)
[2024-10-19] MEDS: 0.9% Normal Saline (1000mL) 1,000 ML 1000 ML IV (12:12)
[2024-10-19 12:18] LABS: Absolute Lymphocyte Count 0.36 X10^3/uL (0.83-4.51); Absolute Neutrophil Count 8.3 X10^3/uL (2.0-7.7); Basophil# 0.02 X10^3/uL; Basophil% 0.2 % (0-1); Eosinophil# 0.03 X10^3/uL; Eosinophils% 0.3 % (0-5); Hematocrit 39.6 % (37-47); Hemoglobin 13.2 g/dL (12.0-15.0); Lymphocyte # 0.36 X10^3/ul (0.83-4.51); Lymphocyte % 3.7 % (19-41); Mean Corp Hgb Conc 33.3 g/dL (32-36); Mean Corpuscular Hgb 29.9 pg (27.0-32.0); Mean Corpuscular Volume 89.8 fL (81-99); Mean Platelet Vol. 9.2 fl (6.2-12.0); Monocyte# 0.98 X10^3/uL; Monocyte% 10.1 % (0-10); NRBC Flagged by Analyzer 0 % (0-5); Neutrophil # 8.29 X10^3/uL (2.7-7.7); Neutrophil % 85.4 % (47-70); POSITIVE DIFFERENTIAL YES; Platelet Count 229 K/mm3 (150-450); RBC Distribution Width CV 12.4 % (11.6-14.6); RBC Distribution Width SD 41.2 fl (35.1-43.9); Red Blood Count 4.41 M/mm3 (4.2-5.4); White Blood Count 9.7 K/mm3 (4.4-11.0)
[2024-10-19 12:38] LABS: Color, Urine Yellow (Yellow); Glucose, Dipstick Normal (Normal); Leukocyte Esterase-Dipstick 25 /ul (Negative); Nitrite-Dipstick Negative (Negative); Occult Blood-Urine 25 /ul (Negative); Protein-Dipstick 30 mg/dl (Negative); Specific Gravity, Urine 1.025 (1.002-1.030); Urine Bilirubin Dipstick Negative (Negative); Urine Clarity Sl. Cloudy (Clear); Urine Urobilinogen Normal (Normal)
[2024-10-19 12:43] LABS: AST(SGOT) 13 U/L (15-37); Alanine Aminotransfer ALT/SGPT 21 U/L (13-56); Albumin, Serum 4.2 g/dL (3.2-5.0); Alkaline Phosphatase 55 U/L (45-117); Anion Gap 11 (5-15); BUN 14 mg/dL (7-18); BUN/Creat Ratio 18.9 RATIO (10-20); Bilirubin, Direct 0.14 mg/dL (0.00-0.30); Calcium,Total 9.1 mg/dL (8.5-10.1); Chloride 102 mmol/L (98-107); Creatinine, Serum 0.74 mg/dL (0.55-1.02); EST Glomerular Filtration Rate 86 mL/min (>60); Est Glom Filt Rate - Afr Amer 104 mL/min (>60); Estimated Creatinine Clearance 72.43 ml/min; Globulin 3.8 g/dL (2.2-4.2); Glucose 135 mg/dL (74-106); Lipase 33 U/L (73-393); Potassium 3.6 mmol/L (3.5-5.1); Sodium Level 136 mmol/L (136-145)
[2024-10-19 12:50] LABS: Ketone-Dipstick 150 mg/dl (Negative)
[2024-10-19 12:55] LABS: Bacteria RARE /hpf (None Seen); Mucous, Urine 1+ /hpf (<or=2+); Red Blood Cells-Urine 0-5 SEEN /hpf (0-5); Squamous Epithelial Cells - UA 0-5 SEEN /hpf (5-10); White Blood Cells 0-5 SEEN /hpf (0-5)
[2024-10-19 13:00] VITALS: BP 101/64; PULSE 92; RESP 18; O2SAT 98
[2024-10-19] MEDS: Acetaminophen 500 MG Tablet 1000 MG PO (14:43)
[2024-10-19 14:50] VITALS: BP 103/67; PULSE 89; RESP 18; O2SAT 98
== END 2024-10-19 14:54 | disposition home or self-care (01) ==
PROVIDERS: Emergency Provider Emergency Medicine; PCP Internal Medicine; Visit Provider Emergency Medicine
DX: U07.1 COVID-19 (principal); R11.10 Vomiting, unspecified; Z90.710 Acquired absence of both cervix and uterus; Z86.16 Personal history of COVID-19; Z98.51 Tubal ligation status; Z90.49 Acquired absence of other specified parts of digestive tract; R51.9 Headache, unspecified
CPT/HCPCS: 80048; 80076; 81001; 83690; 85025; 96361; 96374; 96375; 99283; A4216; J2405

== ENCOUNTER → 2024-12-14 | Outpatient (CLI) | payer OTHER, SELFPAY ==
--- NOTE | 2024-12-14 09:00 | RAD_ITS ---
PROCEDURE: Cervical spine radiographs, 7 views 12/14/2024 REASON FOR EXAM: PAIN TECHNIQUE: 7 views of the cervical spine were obtained. COMPARISON: None available FINDINGS: The bones are osteopenic. On the neutral lateral projection, the cervical spine is imaged from the skull base through the C7-T1 interspace. No acute fracture or focal subluxation on the neutral lateral projection. No acute cervical vertebral body fracture. Prevertebral soft tissues appear within normal limits. Mild/moderate multilevel degenerative disc and facet disease in the cervical spine, greatest at C5-6. No significant instability on flexion and extension views. The odontoid process appears intact. Zetv-kr-dmxazsaw bilateral neural foraminal narrowing at C5-6, greatest on the left RAD/Cerv Spine 4 or 5 Views IMPRESSION: Mild osteopenia. No acute bony abnormality of the cervical spine. Mild/moderate multilevel degenerative disc and facet disease in the cervical sp ine, greatest at C5-6. Rrss-wg-[id number] bilateral neural foraminal narrowing at C5-6, greatest on the left. No evidence of significant instability on flexion and extension views. Reading Location: [facility]
== END | disposition home or self-care (01) ==
LOC: RAD 08:39
PROVIDERS: PCP Internal Medicine; Referring Provider Orthopaedic Surgery Orthopaedic Surgery of the Spine; Visit Provider Orthopaedic Surgery Orthopaedic Surgery of the Spine
DX: M54.2 Cervicalgia (principal)
CPT/HCPCS: 72050

== ENCOUNTER → 2025-01-04 | Outpatient (CLI) | payer OTHER, SELFPAY ==
--- NOTE | 2025-01-04 07:50 | MRI_ITS ---
PROCEDURE: SPINE CERVICAL (ROUTINE) 01/04/2025 REASON FOR EXAM: PAIN TECHNIQUE: Multiplanar and multisequence images were obtained without IV contrast administration. COMPARISON: 12/27/2022 FINDINGS: Vertebrae: Cervical vertebral body heights are preserved. Bone marrow signal is unremarkable. Alignment: Normal. No spondylolisthesis. Spinal Cord: Cervical spinal cord is of normal size and signal intensities. Structures at the foramen magnum are unremarkable. C2-3: Mild left facet hypertrophy produces mild left neural foraminal stenosis. No central spinal stenosis. C3-4: Mild left facet hypertrophy produces mild left neural foraminal stenosis. No central spinal stenosis. C4-5: Unremarkable C5-6: No change in the mild broad disc osteophyte complex produces mild spinal stenosis but no neural foraminal stenosis. C6-7: No change in the mild bilobed disc osteophyte complex which produces mild spinal stenosis and mild bilateral neural foraminal stenosis. C7-T1: Unremarkable MRI/Spine Cervical (Routine) IMPRESSION: No change from 12/27/2022. Reading Location: [id number]
== END | disposition home or self-care (01) ==
LOC: OPMRI 06:59
PROVIDERS: PCP Internal Medicine; Referring Provider Orthopaedic Surgery Orthopaedic Surgery of the Spine; Visit Provider Orthopaedic Surgery Orthopaedic Surgery of the Spine
DX: G95.9 Disease of spinal cord, unspecified (principal); M54.12 Radiculopathy, cervical region
CPT/HCPCS: 72141

== ENCOUNTER → 2025-06-20 | Outpatient (CLI) | payer OTHER, SELFPAY ==
[2025-06-20 11:43] LABS: Vitamin D,25 Hydroxy 45.0 ng/mL (30-100)
== END | disposition home or self-care (01) ==
LOC: LAB.FUTURE 10:53 → LAB 10:56
PROVIDERS: PCP Nurse Practitioner Family; Visit Provider Nurse Practitioner Family
DX: R53.83 Other fatigue (principal)
CPT/HCPCS: 82306; 84439; 84443

== ENCOUNTER 2025-07-07 12:47 | Outpatient (CLI) | payer OTHER, SELFPAY ==
[2025-07-07 12:53] VITALS: BP 114/71; PULSE 78; RESP 14; TEMP 36.1; O2SAT 99; BMI 23.1
[2025-07-07] MEDS: 0.9% NaCl IVPB Med Flush (100mL) 15 ML IV (13:03)
[2025-07-07] MEDS: 0.9% NaCl Peripheral Flush Adult IV (13:05)
[2025-07-07 13:38] VITALS: BP 121/65; PULSE 72; RESP 16; TEMP 35.9
== END 2025-07-07 23:59 | disposition home or self-care (01) ==
LOC: MEDOUTP 12:48
PROVIDERS: PCP Nurse Practitioner Family; Referring Provider Internal Medicine Endocrinology, Diabetes & Metabolism; Visit Provider Internal Medicine Endocrinology, Diabetes & Metabolism
DX: M81.0 Age-related osteoporosis without current pathological fracture (principal)
CPT/HCPCS: 96365; A4216; J3489